=== PATIENT | male | born 1955 | race Caucasian/White ===

== ENCOUNTER 2019-08-25 00:56 | Observation (INO) | payer MEDICARE, SELFPAY ==
--- NOTE | ~2019-08-25 | XR_ITS ---
EXAMINATION: XR loopogram retrograde urogra DATE: 08/25/2019 14:29 INDICATION: Right hydronephrosis. Assess for reflux. TECHNIQUE: [employer] AP radiograph of the abdomen and pelvis was obtained. Multiple fluoroscopic images w ere obtained during retrograde injection of water-soluble contrast into the patient's left lower quad rant ileal conduit. A total of 144 fluoroscopic images were obtained. Fluoroscopy exposure time was 0 .4 minutes. COMPARISON: Outside institution CT performed at [facility] on 08/24/2019 FINDINGS: Residential Sub[employer]or images demonstrate multiple surgical clips and sutures in the pelvis along with a cou ple anastomotic suture lines consistent with prior cystectomy, pelvic lymph node dissection and ileal conduit formation. Drasco for a penile prosthesis also projects over the inferior left hemipelvis . Subsequent images demonstrate retrograde contrast opacification of the ileal conduit with reflux of contrast cephalad along both the nondilated left and right ureters into the bilateral renal collecti ng systems. There is mild to moderate bilateral hydronephrosis. There are kins along the proximal asp ect of both the left and right ureters which on the right appears partially obstructing with intermit tent neural jet of contrast extending cephalad from the site of narrowing. On the left the changes in dicated by a couple thin bands of decreased contrast attenuation. No intraluminal filling defects or urothelial irregularities along the opacified portions of the ureters. IMPRESSION: 1. Ileal conduit with reflux of contrast into both the left and right renal collecting systems which demonstrate mild to moderate bilateral hydronephrosis. 2. Kinks in the course of the proximal left and right ureters which on the right appears to result in low-grade obstruction to at least retrograde flow. Reviewed, dictated and finalized at location A. IMPRESSION: 1. Ileal conduit with reflux of contrast into both the left and right renal col lecting systems which demonstrate mild to moderate bilateral hydronephrosis. 2. Kinks in the course of the proximal left and right ureters which on the righ t appears to result in low-grade obstruction to at least retrograde flow.
--- NOTE | 2019-08-25 01:17 | ADMGEN ---
This patient, Josué Crocker, was admitted to Medical Room 252-01. Patient/family oriented to hospital policies and general routines including ID bracelet, bed and alarms, visiting hours, pain management, procedures, bathroom and other care routines, personal items, smoking policy, room service/diet, and visiting hours. Valuables list has been completed. Information on how to activate the Rapid Response Team has been discussed. Patient/Family are encouraged to report perceived risks to care and to ask questions if they do not understand what they are told or what they should do.
[2019-08-25 01:50] VITALS: BMI 33.2
[2019-08-25] MEDS: SODIUM CHLORIDE 0.9% IV 1,000 ML 100 ML IV CONT ×3 (02:23→23:50)
[2019-08-25] MEDS: TRAZODONE HCL 50 MG TABLET PO ×2 (02:24→21:10)
[2019-08-25 05:26] LABS: Add Urine Microscopic? YES; Appearance Urine Cloudy (Clear); Bacteria Urine Trace /hpf; Bilirubin Urine Negative (Negative); Blood Urine 1+ (Negative); Color Urine Yellow (Yellow); Glucose Urine UA Negative (Negative); Ketones Urine Negative (Negative); Leukocyte Esterase Ur 2+ LEU/UL (Negative); Mucus Urine Rare /lpf; Nitrate Urine Negative (Negative); Protein Urine 1+ mg/dL (Negative); Specific Grav Ur 1.013 (1.001-1.035); Squamous Epithelial Cell Urine Rare /hpf (Few); Urobilinogen Urine Negative mg/dL (<2.0); WBC Urine >75 /hpf
[2019-08-25 06:00] VITALS: BP 123/73; PULSE 96; RESP 20; TEMP 37; O2SAT 98
[2019-08-25 06:31] LABS: Basophils Absolute Auto 0.1 K/mm3 (0.0-0.1); Basophils Percent Auto 0.7 % (0.2-1.2); Eosinophils Absolute Auto 0.2 K/mm3 (0-0.3); Eosinophils Percent Auto 2.2 % (0-4.4); Hematocrit 38.5 % (42.0-52.0); Hemoglobin 12.6 g/dL (14.0-18.0); Immature Granulocyte Absolute 0.05 K/mm3 (0.00-0.031); Immature Granulocyte Percent A 0.6 % (0-0.5); Lymphocytes Absolute Auto 1.31 K/mm3 (0.9-3.2); Lymphocytes Percent Auto 14.7 % (18.3-44.2); Mean Corpuscular HGB Conc 32.7 g/dl (32-36); Mean Corpuscular Hemoglobin 29.4 pg (26-34); Mean Platelet Volume 10.3 fl (7.4-10.4); Monocytes Absolute Auto 1.2 K/mm3 (0.1-0.6); Monocytes Percent Auto 13.9 % (2.6-8.5); Neutrophils Absolute Auto 6.1 K/mm3 (1.3-6.7); Neutrophils Percent Auto 67.9 % (45.5-73.1); Platelet Count Result 170 k/mm3 (150-375); Red Blood Count 4.28 M/mm3 (4.6-6.20); Red Cell Distribution Width 13.9 % (11.5-14.5); White Blood Count 8.9 K/mm3 (4.5-10.0)
--- NOTE | 2019-08-25 09:06 | PM.IMHP ---
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 He reports that he developed pyuria 3-4 weeks ago. He was treated with three 10 day courses of augmentin. His sx resolved while on augmentin but returned immediately after stopping the antibiotics. He reports that he had a negative urine culture ordered by his PCP following his second course of augmentin but his sx recurred so he started the third course of augmentin. He reports that he ran out of augmentin Saturday and took two doses of ciprofloxacin. His sx persisted despite ciprofloxacin so he proceeded to the ED. Initial vitals on presentation to [place] were BP 143/83, HR 101, RR 18, temp 97.6 F, SpO2 95%. Initial workup in the ED revealed WBC 12.2, Hb 13.9, Hct 40.7, Cr 1.63, BUN 20, lactic acid 0.6, and CT abd/pelvis wo contrast which revealed new and diffuse lymph node abnormalities concerning for lymphoma, right hydronephrosis and hydroureter, mild left hydronephrosis and hydroureter similar to prior study with nonobstructing left kidney stone which is unchanged, poorly visualized 3cm focal abnormality in the mid left kidney, diverticulosis without evidence of inflammation or obstruction, and nonspecific peripancreatic findings. He was transferred to our facility as he is established with Dr. Wong. He is seen on the medical floor. At this time, he reports mild sweats. He denies flank pain at this time, nausea, and vomiting. He denies abdominal pain. He reports constipation recently. He had a BM last night in the ED. He denies SOB, chest pain, and cough. Review of Systems Review of Systems: Narrative: Constitutional: Denies significant fatigue. Reports fever as above and intermittent chills. Reports decreased appetite since Saturday. Eyes: Denies vision change. No additional eye complaints. ENT: Denies change in hearing, nasal congestion, dysphagia, odynophagia, and sore throat. Reports seasonal allergies. Cardiovascular: Denies palpitations and chest pain. Denies PND and orthopnea. Denies dyspnea on exertion. Respiratory: Denies cough and shortness of breath. Gastrointestinal: Denies abdominal pain, nausea, and vomiting. Genitourinary: Reports mild right flank pain over the weekend which has resolved today. Reports mild pyuria. Pt has a urostomy. Musculoskeletal: Denies joint pain and swelling. Denies muscle cramps and weakness. Skin: Denies lesions and wounds. Neurologic: Denies focal weakness, paresthesias, confusion, and speech change. Psychiatric: Denies mood change. Denies anxiety and depression. Hematologic: Denies easy bruising and bleeding. All systems reviewed & are unremarkable except as noted in HPI and below PMFSH Past Medical History Medical History Bladder cancer s/p radical cystectomy and ileal loop urinary diversion in 1998 Hyperlipidemia Hypertension Parastomal hernia Recurrent urinary tract infection Surgical History Surgical History H/O prostatectomy History of penile implant History of total cystectomy History of urostomy Hx of hernia repair Family History Family History Father Bladder cancer Sibling Bladder cancer Mother Cancer Father Lung cancer Sibling Bladder cancer Social History Social History Smoking packs per day: 1 Smoking cigarettes per day: 20.0 Years smoked:
[2019-08-25] MEDS: allopurinoL 100 MG TABLET PO (09:17)
[2019-08-25] MEDS: ATORVASTATIN 40 MG TABLET PO (09:18)
[2019-08-25] MEDS: AMLODIPINE BESYLATE 5 MG TABLET PO (09:18)
--- NOTE | 2019-08-25 10:48 | WPDURCON ---
Assessment and Plan Assessment and plan (1) Hydronephrosis of right kidney: Code(s): N13.30 - Unspecified hydronephrosis Status: Acute Assessment and Plan: Will obtain loopogram to look for reflux. We will see what creatinine level shows in the morning. If his creatinine level is increasing and there is no reflux then he may require a renal scan with Lasix washout. We will also discuss with Dr. pandya is well known to him (2) Lymphadenopathy: Code(s): R59.1 - Generalized enlarged lymph nodes Status: Acute Assessment and Plan: Dr. Torres has been consult regarding the adenopathy. (3) Left kidney mass: Code(s): N28.89 - Other specified disorders of kidney and ureter Status: Acute Assessment and Plan: Will evaluate further with a CT with and without contrast once we see what his creatinine level does. Urology Consult Note HPI Date Seen: 08/25/19 Time Seen: 10:48 Requesting Physician: Renetta Longo PA-C Primary Care Provider: UNKNOWN,DOCTOR Consult Narrative Reason for consult: Right hydronephrosis with possible UTI Narrative: Josué Crocker is a 64 year old male who is well known to Dr. Wong. He has a history of a cystectomy many years ago in 1998. He then had a hernia repair with the conduit moved to the left side subsequent to that. He has had issues with recurrent urinary tract infections and has been on suppressive Keflex. He he noticed that despite a recent course of antibiotics as well as the suppressive antibiotics that he was just not getting better. He was having some mild right flank pain. He presented to the emergency room at [facility]. Evaluation there [place] [id number] with a creatinine level of 1.6. He underwent a noncontrast CT scan which revealed 7 new right hydroureter which was difficult to differentiate from reflux versus obstruction. He also was noted to have some new diffuse lymph node abnormalities which they felt was concerning for lymphoma which will need to be evaluated. There was also a question of a lesion in his left kidney measuring 3 cm but it was poorly visualized difficult to tell whether to dromedary hump versus cystic. At the time my evaluation the patient is extremely comfortable denies any fevers flank pain. Review of Systems Review of Systems: All systems reviewed & are unremarkable except as noted in HPI and below Constitutional: Constitutional: Reports no additional constitutional complaints PMFSH Past Medical History Medical History Bladder cancer s/p radical cystectomy and ileal loop urinary diversion in 1998 Hyperlipidemia Hypertension Parastomal hernia Recurrent urinary tract infection Surgical History Surgical History H/O prostatectomy History of penile implant History of total cystectomy History of urostomy Hx of hernia repair Family History Family History Father Bladder cancer Sibling Bladder cancer Mother Cancer Father Lung cancer Sibling Bladder cancer Social History Social History Smoking packs per day: 1 Smoking cigarettes per day: 20.0 Years smoked: 40 Smoking pack-years: 40.00 Smoking status: Current every day smoker Tobacco type: cigarettes Alcohol intake: current Alcohol use details: 1 beer per month Substance use: never Gender identity (if verbalized by the patient): Male Spiritual care concerns: No Agree to blood products: Yes Meds Home Medications and Allergies Home Medications Medication Instructions Recorded Confirmed Type allopurinol 100 mg PO DAILY 08/25/19 08/25/19 History amlodipine 5 mg PO DAILY 08/25/19 08/25/19 History atorvastatin 40 mg PO
--- NOTE | 2019-08-25 13:40 | PC.NURSE ---
Patient to XRay per wheelchair. IV saline locked.
[2019-08-25 13:42] VITALS: BP 136/88; PULSE 95; RESP 18; TEMP 37; O2SAT 96
--- NOTE | 2019-08-25 14:25 | PC.NURSE ---
Patient return from XRay.
--- NOTE | 2019-08-25 20:06 | CONS_ITS ---
DATE OF CONSULTATION: 08/25/2019 REASON FOR CONSULTATION: Lymphadenopathy. HISTORY OF PRESENTING ILLNESS: This is a pleasant 64-year-old male with history of transitional cell cancer of the bladder, status post radical cystectomy with ileal loop urinary diversion done in 1998. The patient otherwise in good health except history of hypertension and hyperlipidemia. He has history of recurrent urinary tract infection. He came into the [facility] with complaint of low-grade fever along with chills and flank pain going on for 2-3 days duration. He was treated with couple of courses of antibiotic treatment initially with ciprofloxacin and then Augmentin. At [facility], the patient had CT scan of the abdomen and pelvis done that showed new and diffuse lymphadenopathy concerning for lymphoma and right-sided hydronephrosis. Clinically, he denies any weight loss. He denies any night sweats. He had some fevers and chills, which has subsided. He denies any new lumps, bumps and lymphadenopathy. REVIEW OF SYSTEMS: 12-point review of system was reviewed and as per HPI, otherwise negative. PAST MEDICAL HISTORY: History of transitional cell carcinoma of the bladder status post radical cystectomy done in 1998, hypertension, hyperlipidemia, recurrent UTI. PAST SURGICAL HISTORY: Prostatectomy, history of penile implant, total cystectomy, urostomy, and hernia repair. FAMILY HISTORY: Father had bladder cancer. Brother had bladder cancer. Mother had unknown cancer. SOCIAL HISTORY: The patient smokes 1 pack per day for and has been smoking more than 40 years duration. He drinks occasionally. The patient is . HOME MEDICATIONS: Reviewed. ALLERGIES: REVIEWED. PHYSICAL EXAMINATION: GENERAL: This patient is a well-developed, well-nourished, male, alert and oriented. VITAL SIGNS: Per nursing note. HEENT: Normocephalic, atraumatic. Clear oropharynx. LUNGS: Clear to auscultation bilaterally. CARDIOVASCULAR: Regular rate and rhythm. No murmurs. ABDOMEN: Soft, nontender, nondistended. Bowel sounds are positive in all 4 quadrants. No hepatosplenomegaly. EXTREMITIES: No edema. NEUROLOGIC: Exam is grossly intact. LABORATORY DATA: WBC 8.9, hemoglobin 12.6, MCV 90, platelets 170,000, neutrophils 67%, lymphocytes 14%. ASSESSMENT AND PLAN: Diffuse abdominal lymphadenopathy. The patient is a 64-year-old obese male with history of transitional cell carcinoma of the bladder, status post radical cystectomy and ileal loop urinary diversion done in 1998. He has been dealing with recurrent UTI. Now, he came into the medical attention when he went to [facility] with complaint of flank pain, low-grade fever and chills going on for last 2-3 days duration. The patient was treated with couple of rounds of antibiotic therapy for UTI initially with ciprofloxacin and more recently with Augmentin. Now, he is on IV antibiotic and already feeling better. I do not have the CT scan for my review. I have provided this patient my office information for followup visit. Clinically, he denies any weight loss and has no evidence of lymphadenopathy and hepatosplenomegaly on my examination. After review of the CT scan from the outside hospital, we will make determination for lymph node biopsy if needed. The patient will follow up with my office to discuss this further. SULMA CLAYTON M.D. BULL [employer]IDDLE PLAYER BULL FIDDLE PLAYER D Edgardo MT: [place]
[2019-08-25 22:00] VITALS: BP 132/82; PULSE 80; RESP 20; TEMP 36.6; O2SAT 98
[2019-08-26 05:53] VITALS: BP 130/81; PULSE 82; RESP 20; TEMP 36.4; O2SAT 95
[2019-08-26 06:09] LABS: Basophils Percent Auto 0.5 % (0.2-1.2); Eosinophils Absolute Auto 0.2 K/mm3 (0-0.3); Eosinophils Percent Auto 2.8 % (0-4.4); Hematocrit 36.2 % (42.0-52.0); Immature Granulocyte Absolute 0.03 K/mm3 (0.00-0.031); Immature Granulocyte Percent A 0.4 % (0-0.5); Lymphocytes Absolute Auto 1.32 K/mm3 (0.9-3.2); Lymphocytes Percent Auto 16.7 % (18.3-44.2); Mean Corpuscular HGB Conc 33.1 g/dl (32-36); Mean Corpuscular Hemoglobin 29.6 pg (26-34); Mean Corpuscular Volume 89.4 fl (80-100); Mean Platelet Volume 9.5 fl (7.4-10.4); Monocytes Absolute Auto 1.2 K/mm3 (0.1-0.6); Monocytes Percent Auto 14.9 % (2.6-8.5); Neutrophils Absolute Auto 5.1 K/mm3 (1.3-6.7); Neutrophils Percent Auto 64.7 % (45.5-73.1); Platelet Count Result 179 k/mm3 (150-375); Red Blood Count 4.05 M/mm3 (4.6-6.20); White Blood Count 7.9 K/mm3 (4.5-10.0)
[2019-08-26 06:25] LABS: Blood Urea Nitrogen 15 mg/dL (9-20); Calcium 8.6 mg/dL (8.4-10.2); Carbon Dioxide 24 mmol/L (22-30); Chloride 108 mmol/L (98-107); Estimated CRCL calculation 54 ml/min; Estimated Glomerular Filt Rate 51; Glucose 103 mg/dL (75-110); Potassium 3.9 mmol/L (3.4-5.0); Sodium 137 mmol/L (137-145)
[2019-08-26] MEDS: ATORVASTATIN 40 MG TABLET PO (08:03)
[2019-08-26] MEDS: allopurinoL 100 MG TABLET PO (08:03)
[2019-08-26] MEDS: AMLODIPINE BESYLATE 5 MG TABLET PO (08:03)
--- NOTE | 2019-08-26 08:25 | WPDPN ---
Progress Note: A&P Assessment and Plan (1) Bladder cancer: Code(s): C67.9 - Malignant neoplasm of bladder, unspecified Status: Acute Assessment and Plan: - pt feeling well. Loopogram: bilateral ureteral reflux - elimantes significant upper tract obstruction. - Plan discahrge per primary team. - recommend suppressive Keflex 500mg daily x3 months. - F/U with Dr. Wong in 6-weeks. Review of Systems Constitutional: Constitutional: Reports no additional constitutional complaints Exam Const: General: no acute distress Resp: Effort & Inspection: normal respiratory effort : Other: ostomy pink, urine clear in bag Objective Data Vital Signs Vital Signs: Vital Signs - 24 hr 08/25/19 13:42 08/25/19 22:00 08/26/19 05:53 Temperature 37.0 C 36.6 C 36.4 C Pulse Rate 95 80 82 Respiratory Rate 18 20 20 Blood Pressure 136/88 132/82 130/81 Pulse Oximetry 96 98 95 Intake/Output Intake/Output: Intake & Output 08/23/19 08/24/19 08/25/19 08/26/19 23:59 23:59 23:59 23:59 Intake Total 2540 390 Output Total 1050 Balance 1490 390 Meds/Results Medications: Active Medications Generic Name Dose Route Start Last Admin Trade Name Freq PRN Reason Stop Dose Admin Acetaminophen 650 mg 08/25/19 01:47 Tylenol Tablet PO Q4H PRN Mild Pain (1-3) or Fever Allopurinol 100 mg 08/25/19 09:00 08/26/19 08:03 Zyloprim PO 100 mg DAILY ELVIA Administration Amlodipine Besylate 5 mg 08/25/19 09:00 08/26/19 08:03 Norvasc PO 5 mg DAILY ELVIA Administration Atorvastatin Calcium 40 mg 08/25/19 09:00 08/26/19 08:03 Lipitor PO 40 mg DAILY ELVIA Administration Sodium Chloride 1,000 mls @ 100 mls/hr 08/25/19 01:50 08/25/19 23:50 Normal Saline Iv IV CONT 100 mls/hr .Q10H ELVIA Administration Ceftriaxone Sodium/Dextrose 1 gm in 50 mls @ 100 mls/hr 08/25/19 18:00 08/25/19 17:36 Rocephin 1 Gm/D5w 50 Ml IVPB Infused Q24H ELVIA Infusion Ondansetron HCl 4 mg 08/25/19 01:47 Zofran Inj IV PUSH Q6H PRN Nausea And Vomiting Trazodone HCl 50 mg 08/25/19 01:55 08/25/19 21:10 Desyrel PO 50 mg HS ELVIA Administration Radiology Results: ITS Impressions Ileo Loopogram 08/25/19 14:46 IMPRESSION: 1. Ileal conduit with reflux of contrast into both the left and right renal collecting systems which demonstrate mild to moderate bilateral hydronephrosis. 2. Kinks in the course of the proximal left and right ureters which on the right appears to result in low-grade obstruction to at least retrograde flow. Labs Labs: Laboratory Results - last 24 hr 08/26/19 08/26/19 05:37 05:37 WBC 7.9 RBC 4.05 L Hgb 12.0 L Hct 36.2 L MCV 89.4 MCH 29.6 MCHC 33.1 RDW 14.0 Plt Count 179 MPV 9.5 Immature Gran % (Auto) 0.4 Neut % (Auto) 64.7 Lymph % (Auto) 16.7 L [place] % (Auto) 14.9 H Eos % (Auto) 2.8 Baso % (Auto) 0.5 Lymph # (Auto) 1.32 [place] # (Auto) 1.2 H Eos # (Auto) 0.2 Baso # (Auto) 0.0 Abs Immat Gran (auto) 0.03 Absolute Neuts (auto) 5.1 Absolute Nucleated RBC 0.0 Nucleated RBC % 0.0 Sodium 137 Potassium 3.9 Chloride 108 H Carbon Dioxide 24 BUN 15 Creatinine 1.40 H Estim Creat Clear Calc 54 Estimated GFR 51 L Glucose 103 Calcium 8.6 Quality VTE Prophylaxis VTE prophylaxis: mechanical ordered
--- NOTE | 2019-08-26 09:24 | PM.DS ---
DS: Diagnosis Admitting Diagnosis Admitting Diagnosis: Unspecified hydronephrosis Discharge Diagnosis (1) Sepsis: Qualifiers: Sepsis acute organ dysfunction status: without acute organ dysfunction Sepsis type: sepsis due to unspecified organism Qualified Code(s): A41.9 - Sepsis, unspecified organism Code(s): A41.9 - Sepsis, unspecified organism Status: Acute (2) Pyelonephritis: Code(s): N12 - Tubulo-interstitial nephritis, not specified as acute or chronic Status: Acute (3) Acute kidney injury: Code(s): N17.9 - Acute kidney failure, unspecified Status: Acute (4) Left kidney mass: Code(s): N28.89 - Other specified disorders of kidney and ureter Status: Acute (5) Bladder cancer: Code(s): C67.9 - Malignant neoplasm of bladder, unspecified Status: Chronic (6) Hydronephrosis of right kidney: Code(s): N13.30 - Unspecified hydronephrosis Status: Acute (7) Lymphadenopathy: Code(s): R59.1 - Generalized enlarged lymph nodes Status: Acute (8) Tobacco dependence: Code(s): F17.200 - Nicotine dependence, unspecified, uncomplicated Status: Chronic Assessment and Plan: (9) Hyperlipidemia: Qualifiers: Hyperlipidemia type: unspecified Qualified Code(s): E78.5 - Hyperlipidemia, unspecified Code(s): E78.5 - Hyperlipidemia, unspecified Status: Chronic (10) Hypertension: Qualifiers: Hypertension type: essential hypertension Qualified Code(s): I10 - Essential (primary) hypertension Code(s): I10 - Essential (primary) hypertension Status: Chronic (11) DVT prophylaxis: Code(s): Z29.9 - Encounter for prophylactic measures, unspecified Status: Acute DS: Summary Hospital Course Reason for hospitalization: Mr. Crocker is a 64 y.o. 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 He reported taking multiple courses of augmentin with intermittent sx relief but his sx would recur as soon as he stopped the antibiotics. Initial workup at OSH revealed WBC 12,200, Hb 13.9, Hct 40.7, Cr 1.63, BUN 20, lactic 0.6, and CT abd/pelvis which revealed right hydronephrosis and hydroureter, mild left hydronephrosis and hydroureter with non-obstruction left kidney stone visualized on prior study, poorly defined 3cm left kidney abnormality, and new diffuse lymph node abnormalities concerning for lymphoma. The pt was transferred to our facility for urology consultation due to hydroureter and hydronephrosis as Dr. Wong is his urologist. Urology was consulted and he was admitted to the hospitalist service for further evaluation and treatment. Urine and blood cultures were obtained as he met SIRS criteria at presentation to OSH. He was treated with IV ceftriaxone for suspected pyelonephritis and IV fluids for FAYE. Oncology was consulted for his lymphadenopathy identified on CT abd/pelvis and the patient will follow-up with Dr. Torres for further evaluation of his diffuse abdominal lymphadenopathy. He underwent loopogram which revealed bilateral ureteral reflux which eliminated significant upper tract obstruction. Urology recommended suppressive keflex 500mg QD for three months and follow-up in 6 weeks. Urine culture was negative for growth. Blood cultures reveal NGTD. He was discharged on PO keflex. The patient's symptoms including right flank pain and pyuria resolved. WBC normalized and he remained afebrile. Smoking cessation was discussed with the pt at length. He was advised to continue follow-up with his specialists and PCP outpatient for further evaluation of his left kidney abnormality and lymphadenopathy. He was discharged home in stab
== END 2019-08-26 10:19 | disposition home or self-care (01) ==
PROVIDERS: Admitting Provider Internal Medicine; Visit Provider Physician Assistant
DX: A41.9 Sepsis, unspecified organism (principal); N12 Tubulo-interstitial nephritis, not specified as acute or chronic; N17.9 Acute kidney failure, unspecified; N28.89 Other specified disorders of kidney and ureter; C67.9 Malignant neoplasm of bladder, unspecified; N13.70 Vesicoureteral-reflux, unspecified; N13.30 Unspecified hydronephrosis; R59.1 Generalized enlarged lymph nodes; F17.210 Nicotine dependence, cigarettes, uncomplicated; E78.5 Hyperlipidemia, unspecified; I10 Essential (primary) hypertension
CPT/HCPCS: 36415; 74420; 80048; 81001; 85025; 87040; 87086; 96361; 96365; A9270; G0378; J0696; J7030; Q9966

== ENCOUNTER 2019-09-10 12:55 | Outpatient (CLI) | payer MEDICARE, SELFPAY ==
[2019-09-10 13:41] LABS: Blood Urea Nitrogen 22 mg/dL (9-20); Calcium 9.5 mg/dL (8.4-10.2); Carbon Dioxide 26 mmol/L (22-30); Chloride 106 mmol/L (98-107); Estimated Glomerular Filt Rate 41; Glucose 141 mg/dL (75-110); Potassium 3.9 mmol/L (3.4-5.0); Sodium 139 mmol/L (137-145)
== END 2019-09-10 12:56 | disposition home or self-care (01) ==
PROVIDERS: Visit Provider Physician Assistant
DX: N17.9 Acute kidney failure, unspecified (principal)
CPT/HCPCS: 36415; 80048

== ENCOUNTER 2019-09-17 07:21 | Outpatient (CLI) | payer MEDICARE, SELFPAY ==
--- NOTE | ~2019-09-17 | PE_ITS ---
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 TECHNIQUE: Blood glucose level was 100 mg/dL. 11.018 mCi of 18-fluorodeoxyglucose (18-FDG) was admini stered i.v. Low dose computed tomography (CT) images were acquired from the base of the brain to the proximal thighs for attenuation correction and anatomic localization. Automated exposure control was employed. Dose-length product (DLP) was 997 mGy-cm. Positron emission tomography (PET) images were ac quired in the same distribution. COMPARISON: CT abdomen and pelvis 08/24/2019 FINDINGS: Head/neck: There is left supraclavicular lymphadenopathy with increased activity. Chest: Calcified left hilar lymph nodes are consistent with old granulomatous disease. No pleural eff usion. The heart size is normal. No pericardial effusion. Abdomen/pelvis/proximal thighs: The liver, gallbladder, pancreas, and adrenal glands are normal. Ther e is cortical thinning of the kidneys. There is moderate right hydronephrosis and hydroureter due to retroperitoneal lymphadenopathy. There are 2 stones in left kidney with the larger measuring 4 mm. Th ere is an ileal conduit on the left. There are no dilated loops of bowel. There is diverticulosis of the colon without evidence of diverticulitis. There is a penile prosthesis. There are changes of vent ral hernia repair. There is retrocrural, peripancreatic, periportal, mesenteric, aortocaval, left par a-aortic, bilateral common iliac, and bilateral external iliac lymphadenopathy with increased activit y. Aortocaval and left para-aortic lymphadenopathy is confluent and encases the aorta in a mass measu ring 11.9 x 6.2 cm with maximum SUV of 16.0. There is no free intraperitoneal fluid. There is no osse ous metastatic disease. IMPRESSION: 1. Abdominal, pelvic, and left supraclavicular lymphadenopathy with increased activity, consistent wi th lymphoma. 2. Moderate right hydronephrosis and hydroureter due to retroperitoneal lymphadenopathy. Reviewed, dictated and finalized at location A. IMPRESSION: 1. Abdominal, pelvic, and left supraclavicular lymphadenopathy with increased a ctivity, consistent with lymphoma. 2. Moderate right hydronephrosis and hydroureter due to retroperitoneal lymphad enopathy.
[2019-09-17 07:49] LABS: Glucose Point of Care 100 (65-105)
== END 2019-09-17 07:22 | disposition home or self-care (01) ==
PROVIDERS: Visit Provider Internal Medicine Hematology & Oncology
DX: C81.73 Other Hodgkin lymphoma, intra-abdominal lymph nodes (principal); R59.0 Localized enlarged lymph nodes; N13.30 Unspecified hydronephrosis; N13.4 Hydroureter
CPT/HCPCS: 78815; A9552

== ENCOUNTER 2019-10-14 13:05 | Outpatient (CLI) | payer MEDICARE, SELFPAY ==
--- NOTE | ~2019-10-14 | US_ITS ---
EXAMINATION: US biopsy lymph node DATE: 10/14/2019 14:07 INDICATION: Hodgkin's lymphoma of intra-abdominal lymph nodes with enlarged FDG avid left supraclavic ular lymph nodes. TECHNIQUE: The procedure including the risks and benefits was discussed with the patient. Risks discu ssed included bleeding and infection. The patient understood the risks and agreed to proceed. The sk in overlying the left supraclavicular lymph nodes of concern was prepped and draped in usual sterile fashion. Anesthetic was administered with 1% lidocaine subcutaneously. An 18 gauge core biopsy need le was advanced under continuous ultrasound observation to the lesion of interest. 8 core biopsy spe cimens were obtained, 6 were placed in RPMI media and 2 in formalin. The needle was removed and the entry site was cleaned and dressed. Post procedure ultrasound demonstrated no hemorrhage. FINDINGS: Ultrasound images demonstrate a hypoechoic 3.3 x 3.3 x 1.8 cm left supraclavicular lymph no de. There are several additional smaller but still abnormally enlarged left supraclavicular lymph nod es. Final images demonstrate biopsy needle advanced at the largest left supraclavicular lymph node. IMPRESSION: 1. Successful Ultrasound-guided biopsy of a 3.3 x 3.3 x 1.8 cm left supraclavicular lymph node. Reviewed, dictated and finalized at location A. IMPRESSION: 1. Successful Ultrasound-guided biopsy of a 3.3 x 3.3 x 1.8 cm left supraclavic ular lymph node.
== END 2019-10-14 13:06 | disposition home or self-care (01) ==
PROVIDERS: Visit Provider Internal Medicine Hematology & Oncology
DX: C85.93 Non-Hodgkin lymphoma, unspecified, intra-abdominal lymph nodes (principal)
CPT/HCPCS: 38505; 76942; 88184; 88185; 88305; 88342

== ENCOUNTER 2019-10-30 00:27 | Outpatient (CLI) | payer MEDICARE, SELFPAY ==
[2019-10-30 20:58] LABS: SARS-CoV-2 RNA PCR Negative
== END 2019-10-30 00:28 | disposition home or self-care (01) ==
LOC: ANHCOVIDDT 00:27
PROVIDERS: Visit Provider Surgery
DX: Z01.812 Encounter for preprocedural laboratory examination (principal); Z11.59 Encounter for screening for other viral diseases
CPT/HCPCS: 36415; 85025; 85610; 85730; 87635; 93005; C9803; U0003

== ENCOUNTER 2019-10-30 08:55 | Outpatient (CLI) | payer MEDICARE, SELFPAY ==
--- NOTE | 2019-10-30 09:00 | ECG_ITS ---
Measurements Intervals [place] Rate: 68 P: 44 DE: 179 QRS: -36 QRSD: 104 T: 32 QT: 385 QTc: 410 Interpretive Statements SINUS RHYTHM LEFT AXIS DEVIATION POOR R WAVE PROGRESSION, ANTERIOR LEADS BASELINE ARTIFACT- I, II, AVR BORDERLINE ECG Electronically Signed On 10-30-2019 9:30:24 CDT by Darryn Canseco D.O.
[2019-10-30 09:18] LABS: Basophils Absolute Auto 0.1 K/mm3 (0.0-0.1); Basophils Percent Auto 0.8 % (0.2-1.2); Eosinophils Absolute Auto 0.2 K/mm3 (0-0.3); Eosinophils Percent Auto 2.1 % (0-4.4); Hematocrit 39.6 % (42.0-52.0); Hemoglobin 13.2 g/dL (14.0-18.0); Immature Granulocyte Absolute 0.05 K/mm3 (0.00-0.031); Immature Granulocyte Percent A 0.6 % (0-0.5); Lymphocytes Absolute Auto 1.78 K/mm3 (0.9-3.2); Lymphocytes Percent Auto 22.5 % (18.3-44.2); Mean Corpuscular HGB Conc 33.3 g/dl (32-36); Mean Corpuscular Hemoglobin 29.8 pg (26-34); Mean Corpuscular Volume 89.4 fl (80-100); Mean Platelet Volume 9.8 fl (7.4-10.4); Monocytes Absolute Auto 0.9 K/mm3 (0.1-0.6); Monocytes Percent Auto 10.9 % (2.6-8.5); Neutrophils Percent Auto 63.1 % (45.5-73.1); Platelet Count Result 157 k/mm3 (150-375); Red Blood Count 4.43 M/mm3 (4.6-6.20); Red Cell Distribution Width 14.7 % (11.5-14.5); White Blood Count 7.9 K/mm3 (4.5-10.0)
[2019-10-30 09:42] LABS: INR 1.1; Prothrombin Time 13.4 Seconds (11.1-14.7)
[2019-10-30 09:43] LABS: Partial Thromboplastin Time 26.8 SECONDS (22.3-36.8)
== END 2019-10-30 08:56 | disposition home or self-care (01) ==
LOC: ANHSURGERY 09:00
PROVIDERS: PCP Pediatrics; Visit Provider Surgery
DX: C82.90 Follicular lymphoma, unspecified, unspecified site (principal); I10 Essential (primary) hypertension; R94.31 Abnormal electrocardiogram [ECG] [EKG]
CPT/HCPCS: 36415; 85025; 85610; 85730; 93005

== ENCOUNTER 2019-11-02 01:40 | Day surgery (SDC) | payer MEDICARE, SELFPAY ==
[2019-10-27 09:22] VITALS: BMI 34.2
--- NOTE | 2019-11-01 16:14 | WPDANESEPP ---
Anes - Eval Pre Procedure Procedure: Operation Date: 11/02/19 07:30 Proposed Procedures p Insertion Andreas Cath - Ewelina Narvaez MD Date/Time: 11/01/19 16:14 Pre Op Diagnosis: Non Hodgkin Lymphoma Patient Data Age: 64 Gender: M Height: 1.73 m Weight: 102.06 kg Allergies Allergy/AdvReac Type Severity Reaction Status Date / Time levofloxacin Allergy Unknown TENDON PAIN Verified 10/27/19 09:04 Contrast Media Allergy Unknown Itching Uncoded 10/27/19 09:04 Home Medications Medication Instructions Recorded Confirmed Type allopurinol 100 mg PO DAILY 08/25/19 10/27/19 History atorvastatin 40 mg PO DAILY 08/25/19 10/27/19 History trazodone 50 mg PO HS 08/25/19 10/27/19 History cephalexin [Keflex] 500 mg PO DAILY 90 Days #90 cap 08/26/19 10/27/19 Rx amlodipine-valsartan 0.5 tablet PO DAILY 10/27/19 10/27/19 History Patient hx anesthesia problems: none Family hx anesthesia problems: none PMFSH Past Medical History Medical History Bladder cancer s/p radical cystectomy and ileal loop urinary diversion in 1998 Hyperlipidemia Hypertension Parastomal hernia Recurrent urinary tract infection Smoker 1 ppd x 40 years Surgical History Surgical History H/O prostatectomy History of penile implant History of total cystectomy History of urostomy Hx of hernia repair Family History Family History Father Bladder cancer Sibling Bladder cancer Mother Cancer Father Lung cancer Sibling Bladder cancer Social History Social History Smoking packs per day: 1 Smoking cigarettes per day: 20.0 Years smoked: 40 Smoking pack-years: 40.00 Smoking status: Current every day smoker Tobacco type: cigarettes Alcohol intake: current Substance use: never Gender identity (if verbalized by the patient): Male Spiritual care concerns: No Agree to blood products: Yes Exam Day of Procedure 11/01/19 16:14
--- NOTE | ~2019-11-02 | XR_ITS ---
XR fl guide central line place 11/02/2019 11:53 Indication: Portacatheter insertion Procedure: 3 fluoroscopic images of the chest. 9 seconds of fluoroscopy. Comparison: No prior studies for comparison. Findings: There is a left subclavian tushar catheter, tip in the SVC. Evaluation of lung parenchyma li mited due to technique. Impression: 1: Portacatheter tip in the SVC. Reviewed, dictated and finalized at location A. Impression: 1: Portacatheter tip in the SVC.
--- NOTE | ~2019-11-02 | XR_ITS ---
EXAMINATION: XR chest port-a-cath/central DATE: 11/02/2019 08:36 INDICATION: Port catheter insertion TECHNIQUE: frontal view of the chest was obtained. COMPARISON: Chest radiograph dated 08/10/2008 FINDINGS: Left subclavian central venous port catheter with distal tip near the superior cavoatrial junction. T here is undulation in the course of the catheter where it passes between the left clavicle in the ant erior left first rib but without evident kinking or flattening of the catheter. Bilateral scattered airspace opacities most prominent in the right upper and left lower lung zones. N o pulmonary edema, pleural effusion or pneumothorax. The cardiomediastinal silhouette is normal. Old healed right clavicle fracture deformity. IMPRESSION: 1. Left subclavian central venous port catheter with distal tip at the superior cavoatrial junction. 2. Scattered bilateral airspace opacities which could represent atelectasis and/or pneumonia. Reviewed, dictated and finalized at location A. IMPRESSION: 1. Left subclavian central venous port catheter with distal tip at the superior cavoatrial junction. 2. Scattered bilateral airspace opacities which could represent atelectasis and /or pneumonia.
[2019-11-02 06:10] VITALS: BP 120/78; PULSE 68; RESP 18; TEMP 36.2; O2SAT 98
[2019-11-02] MEDS: LACTATED RINGERS 1,000 ML 30 ML IV CONT (06:45)
--- NOTE | 2019-11-02 07:03 | WPDANESEPPF ---
Anes - Initial Pre Proc Eval Procedure: Operation Date: 11/02/19 07:30 Proposed Procedures p Insertion Andreas Cath - Ewelina Narvaez MD Date/Time: 11/02/19 07:03 Surgeon: Ewelina Narvaez MD Pre Op Diagnosis: Non Hodgkin Lymphoma Patient Data Age: 64 Gender: M Height: 5 ft 8 in Weight: 102.06 kg Allergies Allergy/AdvReac Type Severity Reaction Status Date / Time levofloxacin Allergy Unknown TENDON PAIN Verified 11/02/19 07:03 Contrast Media Allergy Unknown Itching Uncoded 11/02/19 07:03 Home Medications Medication Instructions Recorded Confirmed Type allopurinol 100 mg PO DAILY 08/25/19 11/02/19 History atorvastatin 40 mg PO DAILY 08/25/19 11/02/19 History trazodone 50 mg PO HS 08/25/19 11/02/19 History cephalexin [Keflex] 500 mg PO DAILY 90 Days #90 cap 08/26/19 11/02/19 Rx amlodipine-valsartan 0.5 tablet PO DAILY 10/27/19 11/02/19 History Patient hx anesthesia problems: none Family hx anesthesia problems: none PMFSH Past Medical History Medical History Bladder cancer s/p radical cystectomy and ileal loop urinary diversion in 1998 Hyperlipidemia Hypertension Parastomal hernia Recurrent urinary tract infection Smoker 1 ppd x 40 years Surgical History Surgical History H/O prostatectomy History of penile implant History of total cystectomy History of urostomy Hx of hernia repair Family History Family History Father Bladder cancer Sibling Bladder cancer Mother Cancer Father Lung cancer Sibling Bladder cancer Social History Social History Smoking packs per day: 1 Smoking cigarettes per day: 20.0 Years smoked: 40 Smoking pack-years: 40.00 Smoking status: Current every day smoker Tobacco type: cigarettes Alcohol intake: current Substance use: never Gender identity (if verbalized by the patient): Male Spiritual care concerns: No Agree to blood products: Yes Anes - Eval Final PreProcedure Day of Procedure 11/02/19 07:03 Patient weight: obese Heart: regular rate and rhythm Lungs: decreased breath sounds Airway: Mallampati scale class II Neurological: alert and oriented Last oral intake: >/= 8 hours ASA classification: III Emergent: no Anesthetic plan: proceed Anesthesia type and monitoring: general GIVS and standard monitoring Informed Consent: The patient's anesthetic plan and its attendant risks and benefits were discussed with the patient/family/POA. Questions were solicited and answers provided to the satisfaction of the patient/family/POA.
[2019-11-02] MEDS: IBUPROFEN IV 800 MG/200 ML 800 MG/200 ML BAG 400 MG IVPB (07:10)
--- NOTE | 2019-11-02 07:17 | PM.IMHP ---
H&P: HPI History of Present Illness Chief complaint: Non Hodgkin Lymphoma Narrative: Josué Crocker is a 64 year old male presenting for placement of port. Pt recently dx'd c lymphoma and needs access for chemotx. Pt denies any previous central catheterizations. Pt is right handed. Review of Systems Constitutional: Constitutional: Reports difficulty sleeping, Reports fatigue, Reports lethargy, Reports night sweats and Reports weakness Eyes: Eyes: Reports no additional eye complaints ENT: Reports Normal hearing present Cardiovascular: Cardiovascular: Denies chest pain and Denies palpitations Respiratory: Respiratory: Denies dyspnea Gastrointestinal: Gastrointestinal: Denies abdominal pain, Denies bloating, Denies constipation, Denies diarrhea, Denies nausea and Denies vomiting Genitourinary: Genitourinary: Denies dysuria Musculoskeletal: Musculoskeletal: Reports no additional musculoskeletal complaints Integumentary/Breasts: Skin/Breast: Reports system reviewed and no additional complaints, except as docu Neurologic: Reports system reviewed and no additional complaints, except as documented Psychiatric: Psychiatric: Reports no additional psychiatric complaints PMFSH Past Medical History Medical History Bladder cancer s/p radical cystectomy and ileal loop urinary diversion in 1998 Hyperlipidemia Hypertension Parastomal hernia Recurrent urinary tract infection Smoker 1 ppd x 40 years Surgical History Surgical History H/O prostatectomy History of penile implant History of total cystectomy History of urostomy Hx of hernia repair Family History Family History Father Bladder cancer Sibling Bladder cancer Mother Cancer Father Lung cancer Sibling Bladder cancer Social History Social History Smoking packs per day: 1 Smoking cigarettes per day: 20.0 Years smoked: 40 Smoking pack-years: 40.00 Smoking status: Current every day smoker Tobacco type: cigarettes Alcohol intake: current Substance use: never Gender identity (if verbalized by the patient): Male Spiritual care concerns: No Agree to blood products: Yes Meds Home Medications and Allergies Home Medications Medication Instructions Recorded Confirmed Type allopurinol 100 mg PO DAILY 08/25/19 11/02/19 History atorvastatin 40 mg PO DAILY 08/25/19 11/02/19 History trazodone 50 mg PO HS 08/25/19 11/02/19 History cephalexin [Keflex] 500 mg PO DAILY 90 Days #90 cap 08/26/19 11/02/19 Rx amlodipine-valsartan 0.5 tablet PO DAILY 10/27/19 11/02/19 History Allergies Allergy/AdvReac Type Severity Reaction Status Date / Time gadobenic acid Allergy Unknown Itching Verified 11/02/19 07:11 [From contrast - MRI] iohexol Allergy Unknown Itching Verified 11/02/19 07:11 [From contrast - CT, X-RAY] levofloxacin Allergy Unknown TENDON PAIN Verified 11/02/19 07:03 Contrast Media Allergy Unknown Itching Uncoded 11/02/19 07:03 Exam Const: General: no acute distress Eyes: Pupils: Equal, round and reactive pupils present EOM: EOMs intact bilaterally Neck: Neck: supple and no JVD Resp: Auscultation: clear to auscultation bilaterally Cardio: Rate: regular rate Rhythm: regular rhythm GI: Inspection: non-distended GI Palp: Yes Soft to palpation, No Tenderness to palpation present (GI), No Guarding due to palpation present (GI) and No Hernia present Other: urostomy +fxn Skin: General skin exam: normal color Extrem: General: normal to inspection Assessment and Plan Assessment and plan (1) Follicular lymphoma: Code(s): C82.90 - Follicular lymphoma, unspecified, unspecified site Status: Acute Assessment and Plan: will place VAD for chemo access
[2019-11-02] MEDS: ceFAZolin 2 GM/D5W 50 ML 2 GM/50 ML BAG IVPB (07:28)
[2019-11-02] MEDS: BUPIVACAINE/EPINEPHRINE 0.5% 30 ML VIAL INFILTRATE (07:49)
[2019-11-02] MEDS: HEPARIN SODIUM 5,000 UNITS/ML VIAL 5000 UNITS IRRIGATION (07:50)
[2019-11-02] MEDS: HEPARIN SODIUM, PORCINE 10,000 UNITS/10 ML VIAL 3 UNITS IV PUSH (07:51)
--- NOTE | 2019-11-02 08:14 | PM.PROC ---
Procedure Note - Detailed Date of procedure: 11/02/19 Pre-op diagnosis: Non Hodgkin Lymphoma Post-op diagnosis: same Procedure performed: placement of left subclavian venous access device under fluroscopic guidance Description of procedure: Patient was brought into the operating room and placed in the supine position. After adequate induction of mac anesthesia, the patient was prepped and draped in normal sterile fashion. Time-out was then done to verify the patient's identity, as well as the procedure being performed. I began by making a small incision in the left chest, I then gained access into the left subclavian vein with an 18 gauge needle. I then placed the guidewire into the vein and confirmed placement via fluoroscopic guidance. I then locally anesthetized the area in the left chest. I then enlarged the incision around the guidewire including making a subcutaneous pocket inferiorly to allow placement of the port itself. I then placed a dilating sheath over the guidewire into the left subclavian vein via sterile Seldinger technique. This was once again done and confirmed via fluoroscopic guidance. I then removed the dilator and the guidewire, now just leaving the sheath in the vein. I then fed the previously flushed catheter into the left subclavian vein under fluoroscopic guidance. At approximately 23 cm, the catheter was noted to be near the atrial caval junction. I then peeled away the sheath, now just leaving the catheter in the vein. I then was able to easily draw and flush from the catheter. The catheter was cut to fit and attached to the port itself. The port was placed into the previously made subcutaneous pocket and sutured in with 0 Ethibond suture. Final fluoroscopic view showed the termination of the catheter at the atrial caval junction with a nice smooth curvature back to the port itself. I was able to gain access to the port with a Quinn needle and was able to easily draw and flush from the port. I then flushed 4 cc of a final heparin flush into the port. The incision was closed with 3 0 Vicryl suture in the subcutaneous tissue and the skin was closed with 4 O Monocryl subcuticular suture. Dermabond was then placed on wound. The patient tolerated the procedure well and will be sent to the recovery room in stable condition. Implants: L SCV VAD Anesthesia: MAC and local Surgeon: Ewelina Narvaez MD Estimated blood loss (mL): 5 Drains: No Packing: No Pathology: none sent Complications: No immediate complications Condition: stable Disposition: PACU Findings: placement of L SCV VAD via 1st stick
[2019-11-02 08:21] VITALS: BP 118/59; PULSE 72; RESP 16; O2SAT 95
[2019-11-02 08:50] VITALS: BP 109/71; PULSE 84; RESP 18; O2SAT 97
[2019-11-02 09:20] VITALS: BP 118/68; PULSE 74; RESP 18
== END 2019-11-02 09:50 | disposition home or self-care (01) ==
PROVIDERS: PCP Pediatrics; Visit Provider Surgery
PROC: (CPT 36561; principal; 2019-11-02 07:30)
DX: C85.90 Non-Hodgkin lymphoma, unspecified, unspecified site (principal); I10 Essential (primary) hypertension; E78.5 Hyperlipidemia, unspecified; Z85.51 Personal history of malignant neoplasm of bladder; F17.210 Nicotine dependence, cigarettes, uncomplicated
CPT/HCPCS: 36561; 77001; C1788; J0690; J1644; J1741; J2250; J2405; J2704; J3010; J7030; J7120

== ENCOUNTER 2020-02-03 12:14 | Outpatient (CLI) | payer MEDICARE, SELFPAY ==
--- NOTE | ~2020-02-03 | CT_ITS ---
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 Automated exposure control and iterative reconstruction technique were employed. Exam do se: 1358.28 mGy-cm total exam DLP. COMPARISON: 09/17/2019 PET scan 08/10/2008 CT abdomen pelvis FINDINGS: CHEST CT: Left Port-A-Cath catheter tip in superior vena cava. Normal heart size. No pericardial effusion. There are coronary artery calcifications. Thoracic aortic atherosclerotic calcifications; no evidence of thoracic aortic aneurysm. There are calcified left hilar nodes and calcified left upper lobe pulmonary granuloma, consistent wi th old granulomatous disease. No hilar or mediastinal mass lesion or lymphadenopathy. The lungs are clear of infiltrate or consolidation. No pleural effusion. No pneumothorax. ABDOMEN/PELVIS CT: There are calcified splenic granulomas consistent with old granulomatous disease. No hepatic, splenic, pancreatic or adrenal space-occupying mass lesion. Stable exophytic 1.3 cm upper pole left renal cyst, unchanged since 08/10/2008. There is scarring and v olume loss of both kidneys, right greater than left. Status post cystectomy, with ileal conduit. Status post prostatectomy and pelvic side wall lymph node dissection bilaterally. Penile prosthesis. There is atherosclerotic calcification of the abdominal aorta and iliac arteries without evidence of aneurysm. There is interval improvement of aortocaval and left periaortic confluent lymphadenopathy since 2019, currently measuring up to approximately 8 x 3.2 cm compared to prior reported measurement of 11 .9 x 6.2 cm. There are innumerable diverticula of the sigmoid and descending colon; no CT evidence of diverticulit is. No bowel obstruction, bowel wall thickening, pneumatosis or intraperitoneal free air. Diffuse idiopathic skeletal hyperostosis of the thoracic spine. No suspicious osteolytic or osteoblastic lesions are noted. IMPRESSION: Interval improvement of confluent aortocaval and periaortic lymphadenopathy since 020 Reviewed, dictated and finalized at Location [facility]. Reviewed, dictated and finalized at location B. IMPRESSION: Interval improvement of confluent aortocaval and periaortic lympha denopathy since 09/17/2019
== END 2020-02-03 12:15 | disposition home or self-care (01) ==
PROVIDERS: Visit Provider Nurse Practitioner Adult Health
DX: C82.23 Follicular lymphoma grade III, unspecified, intra-abdominal lymph nodes (principal)
CPT/HCPCS: 71250; 74176

== ENCOUNTER 2020-05-31 09:40 | Outpatient (CLI) | payer MEDICARE, SELFPAY ==
--- NOTE | ~2020-05-31 | CT_ITS ---
EXAMINATION: CT chest abdomen pelvis wo con EXAM DATE: 05/31/2020 10:32 INDICATION: Follicular lymphoma grade 3. TECHNIQUE: Spiral CT of the chest, abdomen and pelvis was performed without contrast. Axial, valentin l and sagittal images were reviewed. Coronal maximum intensity pixel images of chest reviewed. The dose-length product (DLP) for this examination was 1249.77 mGy-cm. The exposure was tailored accordi ng to patient size (auto mA exposure control), and iterative reconstruction (ASIR) was used as additi onal dose reduction technique. There is no prior study for comparison. FINDINGS: CHEST: The lungs are clear. There are no pleural or pericardial effusions. Tracheobronchial tree is patent. There is no mediastinal, hilar or axillary lymphadenopathy. There is no pneumothorax. Heart normal in size. There is mild coronary arterial calcification, arterial sclerosis. ABDOMEN PELVIS: There is a portacaval lymph node which is enlarged, but with decrease in size, measur ing about 2.7 x 1.5 cm today versus 3.4 x 1.9 cm on prior study. Also mild decrease in both size and density of the matted retroperitoneal lymphadenopathy extending down into the pelvis. This is likely response to treatment. The liver, spleen, adrenal glands and pancreas are unremarkable. Gallbladder is unremarkable. No biliary obstruction. There is moderate right renal atrophy, renal cortical thin frances and decrease in size. Lobular renal contours bilaterally. No hydronephrosis. Prostatectomy, cyst ectomy and ileal pouch There is mild to moderate scattered arteriosclerotic disease. The appendix is not positively visualized. There is no pericecal inflammatory change to suggest appe ndicitis. There is moderate to severe descending and sigmoid colonic colonic diverticulosis. There i s no adjacent inflammatory change to suggest diverticulitis. The stomach and small bowel are unremark able. There is expected amount of colonic stool. No free intraperitoneal gas. There are no osteo blastic or osteolytic lesions identified. IMPRESSION: 1. Decrease in size and density of retroperitoneal, pelvic lymphadenopathy. 2. Colonic diverticulosis. 3. Right renal atrophy. 4. Surgical changes. Reviewed, dictated and finalized at location A. TANCE ADDICTION COORDINATOR
== END 2020-05-31 09:41 | disposition home or self-care (01) ==
PROVIDERS: Visit Provider Internal Medicine Hematology & Oncology
DX: C85.93 Non-Hodgkin lymphoma, unspecified, intra-abdominal lymph nodes (principal); C82.23 Follicular lymphoma grade III, unspecified, intra-abdominal lymph nodes; K57.30 Diverticulosis of large intestine without perforation or abscess without bleeding; N26.1 Atrophy of kidney (terminal)
CPT/HCPCS: 36415; 71250; 74176; 80053; 81001; 83615; 85025; 87077; 87086; 87088; 87186

== ENCOUNTER 2020-09-05 10:15 | Outpatient (CLI) | payer MEDICARE, SELFPAY ==
--- NOTE | ~2020-09-05 | CT_ITS ---
EXAMINATION: CT abdomen pelvis wo con DATE: 09/05/2020 10:47 INDICATION: Non-Hodgkin's lymphoma TECHNIQUE: Computed tomography (CT) of the abdomen and pelvis was performed without intravenous contr ast. The dose-length product (DLP) was 1233.54 mGy-cm. Automated exposure control and iterative recon struction technique were employed. COMPARISON: 05/31/2020 FINDINGS: Minimal dependent atelectasis is present in the lung bases. The heart size is normal. The l iver, pancreas, gallbladder, and adrenal glands are normal. Punctate calcifications in an otherwise n ormal spleen likely represent healed granulomatous disease. There is atrophy of the kidneys. Retroper itoneal lymphadenopathy extending along the right common iliac chain persists without significant nayan nge. There is no free intraperitoneal gas or evidence of bowel obstruction. The bladder and prostate are surgically absent. An ileal conduit is present in the left lower quadrant. Colonic diverticulosis is present without evidence of diverticulitis. A reservoir for a penile pump is present in the left pelvis. There are bridging osteophytes at multiple levels in the lower thoracic spine, consistent wit h diffuse idiopathic skeletal hyperostosis (DISH). IMPRESSION: 1. Stable retroperitoneal and right pelvic lymphadenopathy, consistent with lymphoma. Reviewed, dictated and finalized at location A. IMPRESSION: 1. Stable retroperitoneal and right pelvic lymphadenopathy, consistent with lym phoma.
== END 2020-09-05 10:16 | disposition home or self-care (01) ==
PROVIDERS: PCP Pediatrics; Visit Provider Internal Medicine Hematology & Oncology
DX: C85.93 Non-Hodgkin lymphoma, unspecified, intra-abdominal lymph nodes (principal)
CPT/HCPCS: 74176

== ENCOUNTER 2020-09-13 09:23 | Outpatient (CLI) | payer MEDICARE, SELFPAY ==
[2020-09-13 09:47] LABS: Basophils Percent Auto 0.7 % (0.2-1.2); Eosinophils Absolute Auto 0.1 K/mm3 (0-0.3); Eosinophils Percent Auto 2.8 % (0-4.4); Hemoglobin 13.2 g/dL (14.0-18.0); Immature Granulocyte Absolute 0.02 K/mm3 (0.00-0.031); Immature Granulocyte Percent A 0.4 % (0-0.5); Lymphocytes Absolute Auto 1.07 K/mm3 (0.9-3.2); Lymphocytes Percent Auto 23.4 % (18.3-44.2); Mean Corpuscular HGB Conc 33.8 g/dl (32-36); Mean Corpuscular Hemoglobin 30.9 pg (26-34); Mean Corpuscular Volume 91.3 fl (80-100); Mean Platelet Volume 8.6 fl (7.4-10.4); Monocytes Absolute Auto 0.6 K/mm3 (0.1-0.6); Monocytes Percent Auto 13.6 % (2.6-8.5); Neutrophils Absolute Auto 2.7 K/mm3 (1.3-6.7); Neutrophils Percent Auto 59.1 % (45.5-73.1); Platelet Count Result 131 k/mm3 (150-375); Red Blood Count 4.27 M/mm3 (4.6-6.20); Red Cell Distribution Width 12.9 % (11.5-14.5); White Blood Count 4.6 K/mm3 (4.5-10.0)
[2020-09-13 12:48] LABS: Alanine Aminotransferase 16 U/L (4-50); Albumin Level 4.4 g/dL (3.5-5.1); Alkaline Phosphatase 105 U/L (38-126); Anion Gap 7 mmol/L (8-16); Aspartate Amino Transferase 32 U/L (17-59); Bilirubin,Total 0.4 mg/dL (0.2-1.3); Blood Urea Nitrogen 25 mg/dL (9-20); Calcium 9.8 mg/dL (8.4-10.2); Carbon Dioxide 26 mmol/L (22-30); Chloride 106 mmol/L (98-107); Estimated Glomerular Filt Rate 38; Glucose 117 mg/dL (75-110); Iron 121 ug/dL (49-181); Potassium 4.1 mmol/L (3.4-5.0); Sodium 139 mmol/L (137-145)
[2020-09-13 12:57] LABS: Percent Iron Saturation 35 % (20-50)
== END 2020-09-13 09:24 | disposition home or self-care (01) ==
LOC: ANHLAB 09:25
PROVIDERS: PCP Pediatrics; Visit Provider Internal Medicine Hematology & Oncology
DX: C85.93 Non-Hodgkin lymphoma, unspecified, intra-abdominal lymph nodes (principal)
CPT/HCPCS: 36415; 80053; 82728; 83540; 83550; 85025

== ENCOUNTER 2021-01-19 08:49 | Outpatient (CLI) | payer MEDICARE, SELFPAY ==
[2021-01-19 09:41] LABS: Basophils Percent Auto 0.7 % (0.2-1.2); Eosinophils Absolute Auto 0.1 K/mm3 (0-0.3); Eosinophils Percent Auto 2.1 % (0-4.4); Hematocrit 39.3 % (42.0-52.0); Hemoglobin 13.2 g/dL (14.0-18.0); Immature Granulocyte Absolute 0.05 K/mm3 (0.00-0.031); Immature Granulocyte Percent A 1.2 % (0-0.5); Lymphocytes Percent Auto 19.1 % (18.3-44.2); Mean Corpuscular HGB Conc 33.6 g/dl (32-36); Mean Corpuscular Hemoglobin 31.2 pg (26-34); Mean Corpuscular Volume 92.9 fl (80-100); Mean Platelet Volume 8.7 fl (7.4-10.4); Monocytes Absolute Auto 0.6 K/mm3 (0.1-0.6); Monocytes Percent Auto 15.3 % (2.6-8.5); Neutrophils Absolute Auto 2.6 K/mm3 (1.3-6.7); Neutrophils Percent Auto 61.6 % (45.5-73.1); Platelet Count Result 135 k/mm3 (150-375); Red Blood Count 4.23 M/mm3 (4.6-6.20); Red Cell Distribution Width 13.6 % (11.5-14.5); White Blood Count 4.2 K/mm3 (4.5-10.0)
[2021-01-19 11:06] LABS: Alanine Aminotransferase 21 U/L (4-50); Albumin Level 4.3 g/dL (3.5-5.1); Alkaline Phosphatase 115 U/L (38-126); Anion Gap 10 mmol/L (8-16); Aspartate Amino Transferase 33 U/L (17-59); Bilirubin,Total 0.6 mg/dL (0.2-1.3); Blood Urea Nitrogen 23 mg/dL (9-20); Calcium 9.7 mg/dL (8.4-10.2); Carbon Dioxide 24 mmol/L (22-30); Chloride 106 mmol/L (98-107); Estimated Glomerular Filt Rate 43; Glucose 121 mg/dL (65-110); Potassium 4.1 mmol/L (3.4-5.0); Sodium 140 mmol/L (137-145)
[2021-01-19 11:13] LABS: Hemoglobin A1C 6.8 % (<5.7)
[2021-01-19 12:11] LABS: Folic Acid 11.6 ng/mL (2.76->20)
== END 2021-01-19 08:50 | disposition home or self-care (01) ==
LOC: ANHLAB 08:52
PROVIDERS: PCP Pediatrics; Visit Provider Internal Medicine Hematology & Oncology
DX: E11.9 Type 2 diabetes mellitus without complications (principal); G62.9 Polyneuropathy, unspecified; D64.9 Anemia, unspecified
CPT/HCPCS: 36415; 80053; 82607; 82728; 82746; 83036; 85025

== ENCOUNTER 2021-08-30 09:38 | Outpatient (CLI) | payer MEDICARE, SELFPAY ==
--- NOTE | ~2021-08-30 | CT_ITS ---
EXAMINATION: CT abdomen pelvis wo con DATE: 08/30/2021 10:27 INDICATION: Non-Hodgkin's lymphoma of intra-abdominal lymph nodes TECHNIQUE: Computed tomography (CT) of the abdomen and pelvis was performed without intravenous contr ast. Automated exposure control and iterative reconstruction technique were employed. Exam dose: 886 .69 mGy-cm total exam DLP. COMPARISON: 09/05/2020 CT abdomen pelvis FINDINGS: The lung bases are clear of infiltrate or consolidation. Normal heart size. No pericardial or pleural effusion. The liver, gallbladder, spleen, pancreas, bile and pancreatic ducts and adrenal glands are unremarkab le. Bilateral renal scarring and atrophy Status post cystectomy and ileal conduit. Mild bilateral hydronephrosis. Inflatable penile implant device. Normal caliber of the abdominal aorta, without aneurysm. There is stable or mildly diminished periaortic and aortocaval and right iliac soft tissue thickening ; PET CT imaging would be more accurate for determination of any active lymphadenopathy. Numerous diverticula of the sigmoid and descending colon; no CT evidence of diverticulitis. No bowel obstruction, bowel wall thickening, pneumatosis or intraperitoneal free air. Diffuse idiopathic skeletal hyperostosis of the thoracolumbar spine. No suspicious osteolytic or oste oblastic lesions. IMPRESSION: No significant change since 09/05/2020 Reviewed, dictated and finalized at Location A. Reviewed, dictated and finalized at location A.
== END 2021-08-30 09:39 | disposition home or self-care (01) ==
LOC: ANHIMG 09:41
PROVIDERS: PCP Pediatrics; Visit Provider Internal Medicine Hematology & Oncology
DX: C85.93 Non-Hodgkin lymphoma, unspecified, intra-abdominal lymph nodes (principal)
CPT/HCPCS: 74176

== ENCOUNTER 2023-01-21 10:35 | Outpatient (CLI) | payer MEDICARE, SELFPAY ==
--- NOTE | ~2023-01-21 | CT_ITS ---
EXAMINATION: CT chest abdomen pelvis wo con DATE: 01/21/2023 10:54 INDICATION: Non-Hodgkin lymphoma. TECHNIQUE: Computed tomography (CT) of the chest, abdomen, and pelvis was performed without intraveno us contrast. Automated exposure control and iterative reconstruction technique were employed. The dos e-length product was 1368.67 mGy-cm. COMPARISON: CT abdomen and pelvis 08/30/2021, chest CT 05/31/2020 FINDINGS: CHEST CT: There is a 2 mm nodule in right middle lobe, likely benign. There is a 3 mm nodule in left upper lobe , likely benign. A calcified left lung nodule and calcified left hilar and mediastinal lymph nodes ar e consistent with old granulomatous disease. No pleural effusion. There is a left subclavian port wit h tip at superior cavoatrial junction. The heart size is normal. There are coronary artery calcificat ions. No pericardial effusion. There are bridging endplate osteophytes at multiple levels in the spin e, consistent with diffuse idiopathic skeletal hyperostosis (DISH). ABDOMEN/PELVIS CT: The liver and gallbladder are normal. Calcifications in the spleen are consistent with old granulomat ous disease. The pancreas and adrenal glands are normal. There is cortical thinning of the kidneys. T here are cysts in the kidneys measuring up to 16 mm. There is a 13 mm hyperdense mass in left kidney. There is mild bilateral hydronephrosis and proximal hydroureter. There are changes of ventral hernia repair. There is an ileal conduit on the left. A penile prosthesis is noted. There is diverticulosis of the colon without evidence of diverticulitis. The appendix is not visualized. There is calcified atherosclerosis of the aorta and many of the other arteries. There is confluent fat stranding and sof t tissue attenuation in the retroperitoneum including in the area of the bilateral common iliac lymph node chains, left para-aortic chain, and aortocaval chain. For example, right common iliac lymphaden opathy measures 3.2 x 2.8 cm that measured 3.0 x 2.7 cm on 08/30/21. There is fat stranding in the are a of the periportal chain. There is no free intraperitoneal fluid. There is mild lumbar spondylosis. IMPRESSION: 1. Slightly improved distribution of soft tissue attenuation and fat stranding in the area of peripor cain and retroperitoneal lymph node chains, consistent with treated lymphoma. PET/CT may be useful to differentiate scarring from residual viable lymphoma. 2. Mild bilateral hydronephrosis and proximal hydroureter. 3. 13 mm hyperdense left kidney mass, which may be a hemorrhagic cyst or less likely a neoplasm. Cons ider abdomen CT or MRI without and with contrast. Reviewed, dictated and finalized at location E. IMPRESSION: 1. Slightly improved distribution of soft tissue attenuation and fat stranding in the area of periportal and retroperitoneal lymph node chains, consistent wit h treated lymphoma. PET/CT may be useful to differentiate scarring from residua l viable lymphoma. 2. Mild bilateral hydronephrosis and proximal hydroureter. 3. 13 mm hyperdense left kidney mass, which may be a hemorrhagic cyst or less l ikely a neoplasm. Consider abdomen CT or MRI without and with contrast.
== END 2023-01-21 10:36 | disposition home or self-care (01) ==
PROVIDERS: PCP Pediatrics; Visit Provider Internal Medicine Hematology & Oncology
DX: C85.93 Non-Hodgkin lymphoma, unspecified, intra-abdominal lymph nodes (principal); N13.30 Unspecified hydronephrosis
CPT/HCPCS: 71250; 74176

== ENCOUNTER 2023-01-31 08:37 | Outpatient (CLI) | payer MEDICARE, SELFPAY ==
[2023-01-31 09:02] LABS: Basophils Percent Auto 0.5 % (0.2-1.2); Eosinophils Absolute Auto 0.1 K/mm3 (0-0.3); Eosinophils Percent Auto 1.2 % (0-4.4); Hematocrit 41.4 % (42.0-52.0); Hemoglobin 13.8 g/dL (14.0-18.0); Immature Granulocyte Absolute 0.03 K/mm3 (0.00-0.031); Immature Granulocyte Percent A 0.5 % (0-0.5); Lymphocytes Absolute Auto 1.12 K/mm3 (0.9-3.2); Lymphocytes Percent Auto 17.1 % (18.3-44.2); Mean Corpuscular HGB Conc 33.3 g/dl (32-36); Mean Corpuscular Hemoglobin 31.3 pg (26-34); Mean Corpuscular Volume 93.9 fl (80-100); Monocytes Absolute Auto 0.8 K/mm3 (0.1-0.6); Monocytes Percent Auto 11.4 % (2.6-8.5); Neutrophils Absolute Auto 4.6 K/mm3 (1.3-6.7); Neutrophils Percent Auto 69.3 % (45.5-73.1); Platelet Count Result 155 k/mm3 (150-375); Red Blood Count 4.41 M/mm3 (4.6-6.20); Red Cell Distribution Width 13.5 % (11.5-14.5); White Blood Count 6.6 K/mm3 (4.5-10.0)
[2023-01-31 10:53] LABS: Alanine Aminotransferase 18 U/L (6-50); Albumin Level 4.3 g/dL (3.5-5.1); Alkaline Phosphatase 120 U/L (38-126); Anion Gap 7 mmol/L (8-16); Aspartate Amino Transferase 26 U/L (17-59); Bilirubin,Total 0.7 mg/dL (0.2-1.3); Blood Urea Nitrogen 22 mg/dL (9-20); Calcium 9.3 mg/dL (8.4-10.2); Carbon Dioxide 27 mmol/L (22-30); Chloride 103 mmol/L (98-107); Cholesterol 101 mg/dL (0-200); Estimated Glomerular Filt Rate 46; Glucose 118 mg/dL (65-110); HDL Direct 30 mg/dL; Potassium 3.9 mmol/L (3.4-5.0); Sodium 137 mmol/L (137-145); Triglycerides 104 mg/dL (<150)
[2023-01-31 11:04] LABS: LDL Cholesterol Direct 53 mg/dL
[2023-01-31 11:37] LABS: Hemoglobin A1C 6.2 % (<5.7)
== END 2023-01-31 08:38 | disposition home or self-care (01) ==
LOC: ANHLAB 08:52
PROVIDERS: PCP Pediatrics; Visit Provider Pediatrics
DX: E11.22 Type 2 diabetes mellitus with diabetic chronic kidney disease (principal); N18.31 Chronic kidney disease, stage 3a; E78.2 Mixed hyperlipidemia
CPT/HCPCS: 36415; 80053; 80061; 83036; 85025

== ENCOUNTER 2023-07-05 09:58 | Outpatient (CLI) | payer MEDICARE, SELFPAY ==
--- NOTE | ~2023-07-05 | CT_ITS ---
Non-contrast CT scan of the Abdomen and Pelvis Clinical indication: Lymphoma Technique: 2.5 mm axial scans were obtained through the abdomen and pelvis without intravenous or or al contrast. Dose reduction technique was used on this scan by utilizing automated exposure control a nd iterative reconstruction technique. The dose-length product (DLP) was 1001.63 mGy-cm. COMPARISON: 01/21/2023 Findings: Images through the lung bases reveal no abnormalities. There is mild bilateral hydroureteronephrosis. No renal stone identified. No ureteral stones seen. The liver, spleen, pancreas, gallbladder, and adrenals appear normal. There are atherosclerotic calci fications of the aorta. There are mild infiltrative changes at the para-aortic region/retroperitoneum . . There is no evidence of bowel obstruction. Colonic diverticulosis noted, especially the sigmoid colon . Images through the pelvis were performed. There is no evidence of ascites or lymphadenopathy. Patient is status post cystectomy and prostatectomy, with ileal conduit in place. Impression: No definite evidence for active malignancy or metastatic disease. No lymphadenopathy evident. Status post cystectomy/prostatectomy, with ileal conduit in place. Mild bilateral hydroureteronephros is, similar to prior exam. Mild infiltrative changes in the retroperitoneum are unchanged. This could reflect postoperative or p ostradiation change. Reviewed, dictated and finalized at location . S [employer] Impression: No definite evidence for active malignancy or metastatic disease. No lymphadeno uday evident. Status post cystectomy/prostatectomy, with ileal conduit in place. Mild bilater al hydroureteronephrosis, similar to prior exam. Mild infiltrative changes in the retroperitoneum are unchanged. This could refl ect postoperative or postradiation change.
== END 2023-07-05 09:59 | disposition home or self-care (01) ==
LOC: ANHIMG 09:59
PROVIDERS: PCP Pediatrics; Visit Provider Internal Medicine Hematology & Oncology
DX: C85.93 Non-Hodgkin lymphoma, unspecified, intra-abdominal lymph nodes (principal); N13.4 Hydroureter; Z90.6 Acquired absence of other parts of urinary tract; Z90.79 Acquired absence of other genital organ(s)
CPT/HCPCS: 74176

== ENCOUNTER 2023-07-29 13:00 | Outpatient (CLI) | payer MEDICARE, SELFPAY ==
[2023-07-29 13:51] LABS: Prothrombin Time 13.3 Seconds (11.1-14.7)
[2023-07-29 13:52] LABS: Partial Thromboplastin Time 27.2 Seconds (22.3-36.8)
== END 2023-07-29 13:01 | disposition home or self-care (01) ==
LOC: ANHSURGERY 13:04
PROVIDERS: Anesthesiology; PCP Pediatrics; Visit Provider Surgery
DX: N18.9 Chronic kidney disease, unspecified (principal); Z01.818 Encounter for other preprocedural examination
CPT/HCPCS: 36415; 85610; 85730

== ENCOUNTER 2023-08-01 01:16 | Day surgery (SDC) | payer MEDICARE, SELFPAY ==
[2023-07-25 15:16] VITALS: BMI 33.5
--- NOTE | 2023-07-25 15:32 | PC.NURSE ---
Report to the Outpatient Waiting Room, entrance under the green pavilion located off [facility], at time __6:00AM on date __08/01/23 . Planned Procedure Time: ___7:30AM . Time changes happen often and if your time is changed the preop area will call you the afternoon before. - You and your visitor will be asked to self-screen and do not enter if you have any COVID symptoms. - A mask is optional within the hospital at this time. Patients may have clear liquids (water, carbonated beverages, clear teas, apple juice) until 3 hours prior to surgery with a maximum of 20 ounces. - No food from midnight until time of surgery. Take the following medications with a SIP of water the morning of surgery: NONE____(UNLESS PATIENT STARTS CIPRO, THEN TAKE ON THE MORNING OF SURGERY) DO NOT STOP ANY OF YOUR OTHER PRESCRIPTION MEDICATIONS PRIOR TO SURGERY ?EXCEPT THE FOLLOWING Medications to discontinue per physician NONE Date to take last dose Please no make-up, nail chinese, hairspray, perfume, deodorant, or body powder the day of surgery. No jewelry (including any body piercings) or valuables the day of surgery, leave them at home. Please take a shower or bath the night before, or the morning of, surgery with an antibacterial soap. Wear comfortable, loose fitting clothing. - Jewelry must be removed prior to entering the operating room. Rings and piercings that are not removed may be cut off. - The hospital will not accept responsibility for valuables. - Please leave all valuables, including medications, at home the day of surgery. If you are going home after surgery, a licensed local company truck driver must drive you home. - NO public transportation without another adult if you receive anesthesia. - We recommend that an adult stay with you for 24 hours following discharge. - We also recommend that you do not drive, make important decision, drink alcoholic beverages, or take any drugs that were not prescribed by your health care provider for at least 24 hours after your discharge time. Follow any additional instructions given to you from your surgeon. If you or anyone in your household have experienced Covid symptoms in the past week, please notify your surgeon or the nurse liaison at the phone number below for possible testing. Telephone instructions given to __PATIENT and asked if any additional questions and then verbalized understanding. Patient advised to call surgeon office or pre surgery nurse liaison [phone] if any additional questions.
[2023-08-01 06:13] VITALS: BP 128/81; PULSE 67; RESP 14; TEMP 36.4; O2SAT 98
[2023-08-01 06:25] VITALS: BMI 33.5
[2023-08-01] MEDS: LACTATED RINGERS 1,000 ML 30 ML IV CONT (06:35)
--- NOTE | 2023-08-01 07:20 | WPDANESEPPF ---
Anes - Initial Pre Proc Eval Procedure: Operation Date: 08/01/23 07:30 Proposed Procedures p Removal Andreas Cath - Ewelina Narvaez MD Date/Time: 08/01/23 07:20 Surgeon: Ewelina Narvaez MD Pre Op Diagnosis: non hodgkin's lymphoma intra abdominal lymph nodes Patient Data Age: 68 Gender: M Height: 1.73 m Weight: 99.9 kg Last Vital Signs Temp 97.5 F L 08/01/23 06:13 Pulse 67 08/01/23 06:13 Resp 14 08/01/23 06:13 BP 128/81 08/01/23 06:13 Pulse Ox 98 08/01/23 06:13 O2 Del Method Room Air 08/01/23 06:13 Allergies Allergy/AdvReac Type Severity Reaction Status Date / Time gadobenic acid Allergy Unknown Itching Verified 08/01/23 06:24 [From contrast - MRI] iohexol Allergy Unknown Itching Verified 08/01/23 06:24 [From contrast - CT, X-RAY] levofloxacin Allergy Unknown TENDON PAIN Verified 08/01/23 06:24 Home Medications Medication Instructions Recorded Confirmed Type allopurinol 100 mg tablet 100 mg PO DAILY 08/25/19 07/25/23 History atorvastatin 40 mg tablet 40 mg PO DAILY 08/25/19 07/25/23 History trazodone 50 mg tablet 50 mg PO HS 08/25/19 07/25/23 History loratadine 10 mg tablet (Claritin) 10 mg PO PRN allergies 01/13/20 07/25/23 History ferrous sulfate 325 mg (65 mg 325 mg PO 2XW 07/15/20 07/25/23 History iron) tablet ciprofloxacin HCl 500 mg tablet 500 mg PO BID PRN INFECT 07/25/23 07/25/23 History valsartan 160 mg tablet 160 mg PO QAM 07/25/23 07/25/23 History Patient hx anesthesia problems: none Family hx anesthesia problems: none Results Review: All pre-operative results and documents have been reviewed as part of the pre-operative evaluation. [facility] Past Medical History Medical History Bladder cancer s/p radical cystectomy and ileal loop urinary diversion in 1998 Hyperlipidemia Hypertension Parastomal hernia Recurrent urinary tract infection Smoker 1 ppd x 40 years Surgical History Surgical History (Updated 05/02/20 @ 12:17 by Henrique Machado, ) H/O prostatectomy History of penile implant History of total cystectomy History of urostomy Hx of hernia repair Family History Family History Father Bladder cancer Sibling Bladder cancer Mother Cancer Father Lung cancer Sibling Bladder cancer Social History Social History Smoking packs per day: 1 Smoking cigarettes per day: 20.0 Years smoked: 30 Smoking pack-years: 30.00 Smoking status: Former smoker Tobacco type: cigarettes Smoking end date: 10/03/19 Alcohol intake: current Alcohol use details: 1 beer per month Substance use: never Living arrangements: with family Additional living arrangements comments: Gender identity (if verbalized by the patient): Male Spiritual care concerns: No Agree to blood products: Yes Anes - Eval Final PreProcedure Day of Procedure 08/01/23 07:20 Patient weight: normal Heart: regular rate and rhythm Lungs: clear to auscultation Airway: Mallampati scale class II Neurological: alert and oriented Last oral intake: >/= 8 hours ASA classification: III Emergent: no Anesthetic plan: proceed Anesthesia type and monitoring: general GIVS and standard monitoring Results Review: All pre-operative results and documents have been reviewed as part of the pre-operative evaluation. Informed Consent: The patient's anesthetic plan and its attendant risks and benefits were discussed with the patient/family/POA. Questions were solicited and answers provided to the satisfaction of the patient/family/POA.
--- NOTE | 2023-08-01 07:21 | PM.IMHP ---
H&P: HPI History of Present Illness Date/Time: 08/01/23 07:21 Chief Complaint: lymphoma Narrative: Pt is a 68 y/o M presenting for VAD removal s/p treatment of lymphoma. Pt reports VAD was placed in 10/23 and has had no issues. Pt denies any s/s infection, malfunction, etc. Review of Systems Review of Systems: All systems reviewed & are unremarkable except as noted in HPI and below PMFSH Past Medical History Medical History Bladder cancer s/p radical cystectomy and ileal loop urinary diversion in 1998 Hyperlipidemia Hypertension Parastomal hernia Recurrent urinary tract infection Smoker 1 ppd x 40 years Surgical History Surgical History H/O prostatectomy History of penile implant History of total cystectomy History of urostomy Hx of hernia repair Family History Family History Father Bladder cancer Sibling Bladder cancer Mother Cancer Father Lung cancer Sibling Bladder cancer Social History Social History Smoking packs per day: 1 Smoking cigarettes per day: 20.0 Years smoked: 30 Smoking pack-years: 30.00 Smoking status: Former smoker Tobacco type: cigarettes Smoking end date: 10/03/19 Alcohol intake: current Alcohol use details: 1 beer per month Substance use: never Living arrangements: with family Additional living arrangements comments: Gender identity (if verbalized by the patient): Male Spiritual care concerns: No Agree to blood products: Yes Meds Home Medications and Allergies Home Medications Medication Instructions Recorded Confirmed Type allopurinol 100 mg tablet 100 mg PO DAILY 08/25/19 07/25/23 History atorvastatin 40 mg tablet 40 mg PO DAILY 08/25/19 07/25/23 History trazodone 50 mg tablet 50 mg PO HS 08/25/19 07/25/23 History loratadine 10 mg tablet (Claritin) 10 mg PO PRN allergies 01/13/20 07/25/23 History ferrous sulfate 325 mg (65 mg 325 mg PO 2XW 07/15/20 07/25/23 History iron) tablet ciprofloxacin HCl 500 mg tablet 500 mg PO BID PRN INFECT 07/25/23 07/25/23 History valsartan 160 mg tablet 160 mg PO QAM 07/25/23 07/25/23 History Allergies Allergy/AdvReac Type Severity Reaction Status Date / Time gadobenic acid Allergy Unknown Itching Verified 08/01/23 06:24 [From contrast - MRI] iohexol Allergy Unknown Itching Verified 08/01/23 06:24 [From contrast - CT, X-RAY] levofloxacin Allergy Unknown TENDON PAIN Verified 08/01/23 06:24 Vital Signs Vital Signs - 24 hr 08/01/23 06:13 Temperature 36.4 C L Pulse Rate 67 Respiratory Rate 14 Blood Pressure 128/81 Pulse Oximetry 98 Oxygen Delivery Room Air Exam Const: General: cooperative, comfortable and no acute distress Chest: Other: L sided VAD - C/D/I Resp: Auscultation: clear to auscultation bilaterally Cardio: Rate: regular rate Rhythm: regular rhythm GI: Inspection: normal to inspection Assessment and Plan Assessment and plan (1) 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
--- NOTE | 2023-08-01 07:23 | WPDHPUPDATE1 ---
History and Physical Update Update Date/Time: 08/01/23 07:23 History and Physical has been reviewed, including an updated exam of the patient. There are NO changes in the patient's condition. Risks, benefits, and alternatives have been discussed and questions answered. Patient agrees to proceed with procedure.
[2023-08-01] MEDS: ceFAZolin 2 GM/D5W 50 ML 2 GM/50 ML BAG IVPB (07:30)
[2023-08-01] MEDS: BUPIVACAINE/EPINEPHRINE 0.5% 30 ML VIAL INFILTRATE (07:53)
--- NOTE | 2023-08-01 07:58 | P.OP_ITS ---
Procedure Note - Detailed Date of Procedure 08/01/23 Pre-op Diagnosis non hodgkin's lymphoma s/p treatment Post-op Diagnosis Same Procedure Performed removal L chest VAD Surgeon Ewelina Narvaez MD Anesthesia MAC and Local Indications 68 y/o M s/p treatment for lymphoma. Pt had L sided VAD placed about 4 years a go. Findings L SCV VAD Description of Procedure The patient was taken to the operating room and placed in the supine position. After adequate induction of MAC anesthesia, the patient was then prepped and draped in the normal sterile fashion. A time-out was then done to verify the patient's identity, as well as the procedure being performed. I began by localizing the area of the previously placed port in the left chest. After the area was adequately anesthetized, I made an incision through the previous incision to gain access to the port in the subcutaneous tissue. I was then able to identify the port and using dissection with the Bovie cautery, I was able to free the reservoir from the subcutaneous pocket. The reservoir was being held in by 2 sutures and these were subsequently cut. I was then able to remove the reservoir from the pocket. I then removed the catheter from the left subclavian vein in full. I then held pressure at the level the left subclavian vein for approximately 5 minutes. Hemostasis was noted and I irrigated the pocket. I then closed the subcutaneous tissue with 3-0 Vicryl suture. The skin was closed with 4-0 Monocryl subcuticular suture. Dermabond was placed on the wound. The patient tolerated the procedure well and was alert and awake in the operating room postoperative. The patient will be sent to the recovery room in stable condition. Estimated Blood Loss 5 Drains No Packing No Pathology None sent Complications No immediate complications Condition Stable Disposition PACU [facility] Billing Surgery - Charge Forward: Surgery Billing
[2023-08-01 08:02] VITALS: BP 105/65; PULSE 81; RESP 16; O2SAT 95
[2023-08-01 08:30] VITALS: BP 110/59; PULSE 73; RESP 16
== END 2023-08-01 08:55 | disposition home or self-care (01) ==
PROVIDERS: PCP Pediatrics; Visit Provider Surgery
PROC: (CPT 36589; principal; 2023-08-01 07:30)
DX: Z45.2 Encounter for adjustment and management of vascular access device (principal); I10 Essential (primary) hypertension; E78.5 Hyperlipidemia, unspecified; Z98.890 Other specified postprocedural states; Z87.891 Personal history of nicotine dependence; Z85.51 Personal history of malignant neoplasm of bladder; Z85.72 Personal history of non-Hodgkin lymphomas; Z92.21 Personal history of antineoplastic chemotherapy; Z80.52 Family history of malignant neoplasm of bladder; Z80.1 Family history of malignant neoplasm of trachea, bronchus and lung
CPT/HCPCS: 36590; J0690; J2250; J2704; J3010; J7120

== ENCOUNTER 2023-11-05 09:25 | Outpatient (CLI) | payer MEDICARE, SELFPAY ==
[2023-11-05 09:41] LABS: Basophils Absolute Auto 0.1 K/mm3 (0.0-0.1); Basophils Percent Auto 1.1 % (0.2-1.2); Eosinophils Absolute Auto 0.1 K/mm3 (0-0.3); Eosinophils Percent Auto 1.6 % (0-4.4); Hematocrit 42.9 % (42.0-52.0); Hemoglobin 14.4 g/dL (14.0-18.0); Immature Granulocyte Absolute 0.03 K/mm3 (0.00-0.031); Immature Granulocyte Percent A 0.5 % (0-0.5); Lymphocytes Absolute Auto 1.31 K/mm3 (0.9-3.2); Mean Corpuscular HGB Conc 33.6 g/dl (32-36); Mean Corpuscular Hemoglobin 31.6 pg (26-34); Mean Corpuscular Volume 94.3 fl (80-100); Mean Platelet Volume 8.9 fl (7.4-10.4); Monocytes Absolute Auto 0.6 K/mm3 (0.1-0.6); Monocytes Percent Auto 10.1 % (2.6-8.5); Neutrophils Absolute Auto 4.1 K/mm3 (1.3-6.7); Neutrophils Percent Auto 65.7 % (45.5-73.1); Platelet Count Result 146 k/mm3 (150-375); Red Blood Count 4.55 M/mm3 (4.6-6.20); Red Cell Distribution Width 12.6 % (11.5-14.5); White Blood Count 6.2 K/mm3 (4.5-10.0)
[2023-11-05 10:07] LABS: Alanine Aminotransferase 16 U/L (6-50); Albumin Level 4.4 g/dL (3.5-5.1); Alkaline Phosphatase 94 U/L (38-126); Anion Gap 8 mmol/L (4-12); Aspartate Amino Transferase 25 U/L (17-59); Bilirubin,Total 0.7 mg/dL (0.2-1.3); Blood Urea Nitrogen 23 mg/dL (9-20); Calcium 9.4 mg/dL (8.4-10.2); Carbon Dioxide 27 mmol/L (22-30); Chloride 106 mmol/L (98-107); Estimated Glomerular Filt Rate 40; Glucose 133 mg/dL (65-110); Lactate Dehydrogenase 139 U/L (120-246); Potassium 4.4 mmol/L (3.4-5.0); Sodium 141 mmol/L (137-145)
== END 2023-11-05 09:26 | disposition home or self-care (01) ==
PROVIDERS: PCP Pediatrics; Visit Provider Internal Medicine Hematology & Oncology
DX: C85.93 Non-Hodgkin lymphoma, unspecified, intra-abdominal lymph nodes (principal)
CPT/HCPCS: 36415; 80053; 83615; 85025

== ENCOUNTER 2024-03-09 09:34 | Outpatient (CLI) | payer MEDICARE, SELFPAY ==
--- NOTE | ~2024-03-09 | CT_ITS ---
CLINICAL INDICATION: Personal history of follicular lymphoma, diagnosed in October 2019 presents for fol low-up imaging following conclusion of treatment (Port-A-Cath removal performed in July 2023, XRT co ncluded in 2020). Personal history of bladder cancer status post radical cystectomy and ileal loop urinary diversion in 1998. COMPARISON: CT of the abdomen and pelvis dated 07/05/2023 and dating back to 02/04/2020. TECHNIQUE: An enhanced CT of the abdomen and pelvis was performed utilizing multislice spiral [employer] ue reconstructed at 5 mm slice thickness. Coronal and sagittal reconstructions were performed. This CT examination was performed utilizing dose reduction techniques. This CT examination was performed using one or more of the following dose reduction techniques: Automated exposure control, adjustment of the mA and/or kV according to patient's size, and the use of iterative reconstruction technique. FINDINGS/OBSERVATIONS: Visualized lower thorax: The bilateral lung bases are clear. Liver: Attenuation of the liver is homogeneous. The liver is increased in size measuring 19 cm in longitudinal dimension. Gallbladder and biliary system: The gallbladder is minimally distended, and otherwise unremarkable. Pancreas: Evaluation of the pancreas is limited secondary to the lack of intravenous contrast. Fatty atrophy of the pancreas is noted. Spleen: Punctate calcifications within the spleen, suggesting prior granulomatous disease. Kidneys: Nodular contour to the bilateral kidneys. Mild bilateral hydronephrosis, improved from previ ous examination dated 07/05/2023. Adrenal glands: Unremarkable Gastrointestinal tract: Colonic diverticulosis without surrounding inflammatory change. Appendix:The appendix is not definitively visualized. However, no pericecal inflammatory change is id entified suggest the presence of acute appendicitis. Vasculature: Dense calcification of the abdominal aorta without aneurysmal dilatation. Lymph nodes: Redemonstration of infiltration of the abraham-aortic fat planes, likely post treatment nayan nge. No pathologically enlarged or morphologically suspicious lymph nodes within the retroperitoneum or at the root of the mesentery. Pelvic structures:Post cystectomy and prostatectomy with ileal conduit in place, extending to the lef t of midline in the infraumbilical position. Body wall and musculoskeletal: Rectus diastases is noted. Trace degenerative disease within the lower thoracic and lumbosacral spine. No lytic or blastic lesions are identified. IMPRESSION: No cross-sectional imaging evidence of disease progression, or recurrent disease. Improved hydroureteronephrosis, seen on earlier examination. Stable periaortic infiltration within the retroperitoneum, likely posttreatment. Diverticulosis without diverticulitis. Reviewed, dictated and finalized at location A. [employer] IMPRESSION: No cross-sectional imaging evidence of disease progression, or recurrent diseas e. Improved hydroureteronephrosis, seen on earlier examination. Stable periaortic infiltration within the retroperitoneum, likely posttreatment . Diverticulosis without diverticulitis.
== END 2024-03-09 09:35 | disposition home or self-care (01) ==
PROVIDERS: PCP Pediatrics; Visit Provider Internal Medicine Hematology & Oncology
DX: C85.93 Non-Hodgkin lymphoma, unspecified, intra-abdominal lymph nodes (principal); K57.30 Diverticulosis of large intestine without perforation or abscess without bleeding
CPT/HCPCS: 74176

== ENCOUNTER 2024-03-19 11:17 | Outpatient (CLI) | payer MEDICARE, SELFPAY ==
[2024-03-19 11:37] LABS: Basophils Percent Auto 0.4 % (0.2-1.2); Eosinophils Absolute Auto 0.1 K/mm3 (0-0.3); Eosinophils Percent Auto 1.1 % (0-4.4); Hematocrit 41.3 % (42.0-52.0); Hemoglobin 13.8 g/dL (14.0-18.0); Immature Granulocyte Absolute 0.06 K/mm3 (0.00-0.031); Immature Granulocyte Percent A 0.8 % (0-0.5); Lymphocytes Absolute Auto 1.25 K/mm3 (0.9-3.2); Lymphocytes Percent Auto 17.7 % (18.3-44.2); Mean Corpuscular HGB Conc 33.4 g/dl (32-36); Mean Corpuscular Hemoglobin 31.2 pg (26-34); Mean Corpuscular Volume 93.4 fl (80-100); Monocytes Absolute Auto 0.6 K/mm3 (0.1-0.6); Monocytes Percent Auto 9.1 % (2.6-8.5); Neutrophils Percent Auto 70.9 % (45.5-73.1); Platelet Count Result 149 k/mm3 (150-375); Red Blood Count 4.42 M/mm3 (4.6-6.20); Red Cell Distribution Width 13.1 % (11.5-14.5); White Blood Count 7.1 K/mm3 (4.5-10.0)
[2024-03-19 11:40] LABS: Blood Urea Nitrogen 28 mg/dL (8-26); Carbon Dioxide 26 mmol/L (22-30); Chloride 104 mmol/L (98-109); Estimated Glomerular Filt Rate 40; Glucose 154 mg/dL (70-105); Potassium 3.8 mmol/L (3.5-4.9); Sodium 140 mmol/L (138-146)
[2024-03-19 12:58] LABS: Alanine Aminotransferase 15 U/L (6-50); Albumin Level 4.3 g/dL (3.5-5.1); Alkaline Phosphatase 86 U/L (38-126); Anion Gap 8 mmol/L (4-12); Aspartate Amino Transferase 22 U/L (17-59); Bilirubin,Total 0.5 mg/dL (0.2-1.3); Blood Urea Nitrogen 31 mg/dL (9-20); Calcium 9.6 mg/dL (8.4-10.2); Carbon Dioxide 26 mmol/L (22-30); Chloride 103 mmol/L (98-107); Estimated Glomerular Filt Rate 46; Glucose 155 mg/dL (65-110); Lactate Dehydrogenase 128 U/L (120-246); Potassium 3.9 mmol/L (3.4-5.0); Sodium 137 mmol/L (137-145)
== END 2024-03-19 11:18 | disposition home or self-care (01) ==
LOC: ANHLAB 11:18
PROVIDERS: PCP Pediatrics; Visit Provider Internal Medicine Hematology & Oncology
DX: C85.93 Non-Hodgkin lymphoma, unspecified, intra-abdominal lymph nodes (principal)
CPT/HCPCS: 36415; 80047; 80053; 83615; 85025

== ENCOUNTER 2024-09-16 12:19 | Outpatient (CLI) | payer MEDICARE, SELFPAY ==
--- OUTSIDE RECORDS SUMMARY | 2024-09-16 12:23 | XMS_ITS | Encounter Summary ---
Author Organization [facility] Address [facility] [place] [address] Care Team Providers Care Toe Trimmer Name Role Phone Mayank Valerio MD Primary Care Provide r Encounter Details Date Type Department Care Team (Late st Contact Info) Description 08/23/2011 Abstract [facility] Conversion Md, Generic Conversion, Social History Tobacco Use Types Packs/Day Years Used Date Smoking Tobacco: Never Assessed Sex and Gender Information Value Date Recorded Sex Assigned at Male 02/15/2022 12:59 PM CDT Legal Sex Male 7:54 PM CDT Gender Identity Male 02/15/2022 12:59 PM CDT Sexual Orientation Straight 02/15/2022 12 :59 PM CDT documented as of this encounter Plan of Treatment Upcoming Encounters Date Type Department Care Team (Late st Contact Info) Description 02/22/2025 1:00 PM CDT Office Visit [facility] [address] [place] [id number] [place] [address] [place] [address] documented as of this encounter Visit Diagnoses Not on filedocumented in this encounter Care Teams Toe Trimmer Relationship Specialty Start [place] [address] [place] [address] PCP - General INTERNAL MEDICINE 03/06/18 documented as of this encounter
--- OUTSIDE RECORDS SUMMARY | 2024-09-16 12:23 | XMS_ITS | Encounter Summary ---
Author Organization [facility] Address [address] [place] [address] Care Team Providers Care Back Padder Name Role Phone Unavailable Primary Care Provider Unavailabl e Encounter Details Date Type Department Care Team (Late st Contact Info) Description 10/16/2019 Lab Requisition [facility] Care Pathology Lab [address] [place] [address] Gt Langford MD [address] [facility] [address] [place] [id number] Illness, unspecified Social History Tobacco Use Types Packs/Day Years Used Date Smoking Tobacco: Never Assessed Sex and Gender Information Value Date Recorded Sex Assigned at Not on file 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 Gender Identity Not on file Sexual Orientation Not on file documented as of this encounter Plan of Treatment Not on file documented as of this encounter Procedures Procedure Name Priority Date/Time Associated Diagnosis Comments PATHOLOGY TISSUE Routine 10/14/2019 2:07 PM CDT Illness, unspecified documented in this encounter Results * PATHOLOGY TISSUE (10/14/2019 2:07 PM CDT) Case Report Surgical Pathology Report Case: [id number] Authorizing Provider: Gt Langford MD Collected: 10/14/2019 02:07 PM Ordering Location: [facility] Care Pathology Lab Received: 10/16/2019 10:15 AM Pathologist: Yara Phillips MD Specimen: Lymph Node Biopsy, OSC: [id number] 10/16/2019 5:26 PM CDT [facility] Final Diagnosis Lymph node, left supraclavicular, needle core biopsy: - Follicular lymphoma, as sampled. - See description. 10/16/2019 5:26 PM [facility] Microscopic Description and Comment Review of the left supraclavicular lymph node specimen reveals needle core biopsy portions of lymph node tissue with predominantly nodular architecture. The nodules are composed of lymphoid cells which are mostly small to intermediate in size, and have nuclear membrane indentations. Within the nodules, there is a paucity of tingible body macrophages, and no polarization is appreciated. Mantle zones are not well-preserved. Immunohistochemical stains are performed on block A1 in the [facility] Department of Pathology, with appropriately reactive controls, to further define the immunoarchitecture and phenotype of the cells and demonstrate the following: CD20, CD10, BCL-2, and BCL-6: positive in the neoplastic cells. CD3 and CD5: negative in neoplastic cells. CD21 highlights multiple follicular dendritic cell meshworks. Per outside report, concurrent lymph node flow cytometry (, [id number]) detects an abnormal/monotypic WD75-gieuurtl B-cell population (52% of sample). The cells are reported to express CD45, CD10, CD19, CD20 (bright), CD38, FMC7 +/-, HLA-DR, and surface lambda light chains. Overall, these findings are most consistent with follicular lymphoma in the current sample of tissue. While the majority of cells are small, suggesting a low-grade lymphoma, definitive grading is recommended to be performed on an excisional specimen since the possibility of a higher grade, unsampled component cannot be excluded in a needle biopsy. Correlation with clinical findings is required. KR/MM 10/16/2019 5:26 PM [facility] Clinical History Lymphadenopathy. 10/16/2019 5:26 PM [facility] Materials Received Received are 2 slides and 1 block (A1) labeled [id number] along with a copy of the outside pathology report. [place] [address]. All original materials are returned to the referring institution, along with a copy of our final report. 10/16/2019 5:26 PM [facility] Disclaimer The performance characteristics of all immunohistochemical and indirect immunofluorescence stains (if any) cited in this report were determined by the Histopathology Laboratory of [facility]. Some of these tests were developed by our own laboratory and have not been cleared or approved by the US Food and Drug Administration. The FDA does not require this test to go through premarket FDA review. These tests are used for clinical purposes. They should not be regarded as investigational or for research. This laboratory is certified under the Clinical Laboratory Improvement Amendments (CLIA) as qualified to perform high complexity clinical laboratory testing. This case has been personally reviewed and interpreted by the attending (teaching) pathologist. 10/16/2019 5:26 PM CDT [facility] PATH[facility] Embedded Images 10/16/2019 5:26 PM CDT [facility] PATH[facility] Pathology/Cytolo gy BIOPSY OF LYMPH NODE / Unknown 10/14/2019 2:07 PM CDT 10/16/2019 10:15 AM CDT Gt Langford MD LAB - PATHOLOGY/CYTOLOGY ORDER BRITTANY Final Result [facility] PATHOLOG[facility] LAB [address] [place] [address], [facility] [phone] documented in this encounter Visit Diagnoses Diagnosis Illness, unspecified documented in this encounter
--- OUTSIDE RECORDS SUMMARY | 2024-09-16 12:23 | XMS_ITS | Encounter Summary ---
Author Organization [facility] Address [address] [place] [address] Care Team Providers Care Reporting Process Consultant Name Role Phone Mayank Valerio MD Primary Care Provider [phone]- [phone] Encounter Details Date Type Department Care Team ([facility] Contact Info) Description 03/16/2020 Chart Note [facility] Radiation Therapy [address] [place] [address] [place] [address] [place] [address] Social History Tobacco Use Types Packs/Day Years Used Date Smoking Tobacco: Every Day Cigarettes 1 40 Alcohol Use Standard Drinks/Week Comments Yes 0 (1 standard drink = 0.6 oz pur e alcohol) Sex and Gender Information Value Date Recorded Sex Assigned at Not on file Legal Sex Male 2:15 PM CDT Gender Identity Not on file Sexual Orientation Not on file COVID-19 Exposure Response Date Recorded In the last month, have you been in contact with someone who was confirmed or suspected to have Coronavirus / COVID-19? 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 [address] [place] [address] Lang Torres MD [address] [facility] [address] [place] [address] documented as of this encounter Visit Diagnoses Not on filedocumented in this encounter Care Teams Reporting Process Consultant Relationship Specialty Start Date End Date Mayank Valerio MD PCP - General Internal Medicine 02/10/20 documented as of this encounter
--- OUTSIDE RECORDS SUMMARY | 2024-09-16 12:23 | XMS_ITS | Clinical Summary ---
Author Organization [facility] Address [address] [place] [address] Care Team Providers Care Drag Out Man Name Role Phone Unavailable Primary Care Provider Unavailabl e Source Comments [facility],non-owned Affiliates and Associated Physician Practices is amultiple site organization consisting of ambulatory clinics and hospital sitesin [place], [place], [place] and [place]. This disclosure is being madepursuant to the Care Everywhere program and may not contain all information available regarding this patient. Last updated 18.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 Gender Identity Not on file Sexual Orientation Not on file Plan of Treatment Health Maintenance Due Date Last Done Comments COLOGUARD (AGES 45-75) - COL ON CA SCREENING 1954 COLON MONITORING 1954 COLONOSCOPY - COLON CA SCREENING 1954 CT COLONOGRAPHY - COLON CA SCREENING 1954 Colorectal Cancer Screening 1954 FIT - COLON CA SCREENING 1954 FLEX SIG - COLON CA SCREENING 1954 LIPID TESTING 1954 HEPATITIS C SCREENING 01/12/1972 DTAP/TDAP/TD VACCINES (1 - Tdap) 1973 PNEUMOCOCCAL VACCINE 50+ (1 of 1 - PCV) 01/17/2004 ZOSTER VACCINE (1 of 2) 01/17/2004 COVID-19 VACCINE ( - 2023-2 5 season) 2024 DEPRESSION SCREENING 05/06/2024 INFLUENZA VACCINE (Season Ended) 2025 Respiratory Syncytial Virus (RSV) Vaccine Pt: or over 60 yrs (1 - 1-dose 75+ series) 2029 HEPATITIS B VACCINE Aged Out No longe r eligible based on patient's age to complete this topic HIB VACCINE Aged Out No longer eligi ble based on patient's age to complete this topic HPV VACCINE Aged Out No longer eligi ble based on patient's age to complete this topic MENINGOCOCCAL (Group B) VACC INE SHARED DECISION-MAKING Aged Out No longer eligibl e based on patient's age to complete this topic MENINGOCOCCAL GROUPS A/C/Y/W VACCINE Aged Out No longer eligible b ased on patient's age to complete this topic Insurance MEDICARE
--- OUTSIDE RECORDS SUMMARY | 2024-09-16 12:23 | XMS_ITS | Clinical Summary ---
Author Organization [facility] Address [facility] [place] [address] Care Team Providers Care Mental Measurements Teacher Name Role Phone Mayank Valerio MD Primary Care Provide r Allergies Active Allergy Reactions Criticality Noted Date Comments Iodine Hives Levofloxacin Other (see comment), Shortness of Breath High 09/10/2019 Metformin Diarrhea Low 08/24/2021 Medications aspirin 81 MG chewable tablet Chew 1 tablet (81 mg total) by mouth as needed. Active valsartan (DIOVAN) 160 MG tabletIndications :Essential hypertension, benign Take 1 tablet by mouth once daily 90 tablet 3 01/17/20 24 Active metFORMIN ER (GLUCOPHAGE-XR) 500 MG 24 hr tabletIndications :Type 2 diabetes mellitus with stage 3a chronic kidney disease, without long-term current use of insulin ([facility]) Take 1 tablet (500 mg total) by mouth daily with breakfast. 30 tablet 11 02/20/20 24 Active atorvastatin (LIPITOR) 40 MG tabletIndications :Mixed hyperlipidemia Take 1 tablet by mouth once daily 90 tablet 2 04/17/20 24 Active hydrocortisone (HYTONE) 2.5 % ointmentIndicatio ns:External hemorrhoids Apply topically 2 (two) times daily. 29 g 3 08/21/19 25 Active traZODone (DESYREL) 50 MG tabletIndications :Insomnia, unspecified type TAKE 1 TABLET BY MOUTH ONCE DAILY AT BEDTIME 90 tablet 2 09/12/19 25 Active allopurinol (ZYLOPRIM) 100 MG tabletIndications :Gout, unspecified cause, unspecified chronicity, unspecified site Take 1 tablet by mouth once daily 90 tablet 2 09/12/19 25 Active traZODone (DESYREL) 50 MG tabletIndications :Insomnia, unspecified type TAKE 1 TABLET BY MOUTH ONCE DAILY AT BEDTIME 90 tablet 1 03/23/20 24 2024 Discontinued allopurinol (ZYLOPRIM) 100 MG tabletIndications :Gout, unspecified cause, unspecified chronicity, unspecified site Take 1 tablet by mouth once daily 90 tablet 1 03/23/20 24 2024 Discontinued hydrocortisone (HYTONE) 2.5 % ointmentIndicatio ns:External hemorrhoids Apply topically 2 (two) times daily. 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 ([facility]) 12/16/2019 Cigarette smoker 09/23/2018 Hyperplastic colon polyp 09/23/2018 Diverticulosis 09/23/2018 History of primary bladder cancer 03/14/2018 Essential hypertension, benign 03/14/2018 Recurrent pyelonephritis 12/24/2014 Overview (09/18/2018): Pyelonephritis, unspecified Insomnia 08/25/2012 Overview (09/18/2018): Insomnia, unspecified Mixed hyperlipidemia 08/25/2012 Overview (09/18/2018): Mixed hyperlipidemia Hx of total cystectomy 03/06/1999 Overview (09/23/2018): Radical cystectomy done for bladder cancer Resolved Problems Problem Noted Date Diagnosed Date Resolved Date History of transitional cell carcinoma of kidney 08/20/2024 08/20/2024 Skin tag 03/27/2021 02/27/2024 Type 2 diabetes mellitus wit hout complication, without long-term current use of insulin ([facility]) 09/20/2020 02/15/2022 History of bladder cancer 10/06/2019 Chronic kidney disease (CKD) stage G1/A1, glomerular filtration rate (GFR) equal to or greater than 90 mL/min/1.73 square meter and albuminuria creatinine ratio less than 30 mg/g 03/14/2018 02/15/2022 Encounter for preventive health examination 09/22/2013 01/15/2020 Encounters Date Type Department Care Team Description 08/20/2024 1:00 PM CDT Office Visit [address] [place] [address] Mayank Valerio MD Follow Up (6 month); Lab Results (Lab review) 08/20/2024 Travel 08/14/2024 8:14 AM CDT - 08/14/2024 11:59 PM CDT Hospital Encounter [facility] [address] [place] [address] Mayank Valerio MD Discharge Disposition: Home or Self Care (Routine Discharge) 08/14/2024 Travel from Last 3 Months Immunizations Immunization Administration Dates Next Due Fluzone High Dose - >Age 65 (Prefilled Syringe) 04/19/2022,04/04/2021,03/01/2020 Influenza (Generic) 02/12/2013,03/03/2012,2010 Influenza Adult (Generic) 03/03/2019,04/10/2017, 03/02/2016 MODERNA COVID-19 (12+) MRNA, LNP-S, PF, 100 MCG/ 0.5 ML DOSE 04/04/2021,07/09/2020,06/11/2020 Tdap (Boostrix) 12/07/2023 Family History Medical History Relation Comments Cancer Father Cancer Mother Relation Status Comments Father Mother Social History Tobacco Use Types Packs/Day Years Used Date Smoking Tobacco: Former Cigarettes Q uit: 09/2019 Passive Smoke Exposure: Past Smokeless Tobacco: Never Tobacco Cessation:Counseling Given: No Alcohol Use Standard Drinks/Week Comments Yes 0 (1 standard drink = 0.6 oz pur e alcohol) OCCASIONAL AUDIT-C Answer Date Recorded Frequency of Alcohol Consumption Monthly or less 03/13/2018 Average Number of Drinks Not on file 018 Frequency of Binge Drinking Not on file 12/2017 PHQ-2 Answer Date Recorded Patient Health Questionnaire-2 Score 0 08/20/2024 Sex and Gender Information Value Date Recorded Sex Assigned at Male 02/15/2022 12:59 PM CDT Legal Sex Male 7:54 PM CDT Gender Identity Male 02/15/2022 12:59 PM CDT Sexual Orientation Straight 02/15/2022 12 :59 PM CDT Last Filed Vital Signs Vital Sign Reading Time Taken Comments Blood Pressure 128/70 08/20/2024 12:47 PM CDT Pulse 67 08/20/2024 12:47 PM CDT Temperature 36.9 C (98.4 F) 08/20/2024 12:47 PM CDT Respiratory Rate 20 08/20/2024 12:47 PM CDT Oxygen Saturation 96% 08/20/2024 12:47 PM CDT Inhaled Oxygen Concentration - - Weight 96.4 kg (212 lb 9.6 oz) 08/20/2024 12:47 PM CDT Height 172.7 cm (5' 8 ) 12/16/2023 1:28 PM CDT Body Mass Index 32.33 12/16/2023 1:28 PM CDT Plan of Treatment Upcoming Encounters Date Type Department Care Team (Late st Contact Info) Description 02/22/2025 1:00 PM CDT Office Visit [facility] [address] [address] [place] [address] [place] [address] [place], [place] [id number] Health Maintenance Due Date Last Done Comments Colorectal Cancer Screening Colonoscopy (10 Years) 1954 Diabetes: Retinopathy Eye Exam 01/17/1972 Hepatitis C 01/17/1972 Pneumococcal Vaccine: 50+ Years (1 of 2 - PCV) 1973 Zoster Vaccines (1 of 2) 01/17/2004 RSV Immunization or 60+ Years (1 - Risk 60-74 years 1-dose series) 2014 Annual Medicare Wellness Visit 2019 COVID-19 Vaccine ( season) 2024 04/04/2021, 07/09/2020, 06/11/2020 Kidney Health Evaluation 02/11/2025 02/12/2024 Lipid Panel 02/11/2025 02/12/2024, 01/05, 08/29/2020 Hemoglobin A1C 02/13/2025 08/14/2024, 1001/2024, 01/31/2023, Additional history exists DTaP, Tdap and Td Vaccines (2 - Td or Tdap) 12/06/2033 12/07/2023 AAA SCREENING Completed 01/21/2023, 01/04, 09/05/2020, Additional history exists PHQ-2 ([facility]) Completed 08/20/2024 Meningococcal B Vaccine Aged Out No l onger eligible based on patient's age to complete this topic Meningococcal Vaccine Aged Out No tushar jodi eligible based on patient's age to complete this topic RSV Immunizations Under 20 Months Aged Out No longer eligible based on patient's age to complete this topic Procedures Procedure Name Priority Date/Time Associated Diagnosis Comments COMPREHENSIVE METABOLIC PANEL Routine 08/14/2024 8:20 AM CDT Type 2 diabetes mellitus with stage 3a chronic kidney disease, without long-term current use of insulin ([facility]) HEMOGLOBIN, GLYCOSYLATED Routine 08/14/2024 8:20 AM CDT Type 2 diabetes mellitus with stage 3a chronic kidney disease, without long-term current use of insulin ([facility]) LIPID PANEL Routine 02/12/2024 8:35 AM CDT Type 2 diabetes mellitus with stage 3a chronic kidney disease, without long-term current use of insulin ([facility]) Mixed hyperlipidemia CT ABD+PEL WO CON STAT 08/24/2019 8:0 4 PM CDT COLONOSCOPY Routine [facility] from Last 3 Months or Most Recently Relevant to Health Maintenance Results * (ABNORMAL) HEMOGLOBIN, GLYCOSYLATED (08/14/2024 8:20 AM CDT) HGB A1C 6.6(H) <5.7 % 08/14/2024 3:51 PM CDT [facility] Comment: ADA GUIDELINES 2010 5.7 TO 6.4% INCREASED RISK OF DIABETES > OR = 6.5% CONSISTENT WITH DIABETES ESTIMATED AVG GLUCOSE 143 mg/dL 08/14/2024 3:51 PM CDT [facility] 08/14/2024 8:20 AM CDT Mayank Valerio MD LABORATORY Final Result [facility] [address] [place] [address], * (ABNORMAL) COMPREHENSIVE METABOLIC PANEL (08/14/2024 8:20 AM CDT) GLUCOSE 127(H) 70 - 99 MG/DL 08/14/2024 8:51 AM CDT [facility] BUN 29(H) 7 - 18 MG/DL 08/14/2024 8:51 AM CDT [facility] CREATININE S/P/B 1.63(H) 0.50 - 1.20 MG/DL 08/14/2024 8:51 AM CDT [facility] SODIUM S/P/B 141 136 - 145 MMOL/L 08/14/2024 8:51 AM CDT [facility] POTASSIUM S/P/B 4.1 3.5 - 5.1 MMOL/L 08/14/2024 8:51 AM CDT [facility] CHLORIDE S/P/B 105 100 - 108 MMOL/L 08/14/2024 8:51 AM CDT [facility] CO2 28.5 21.0 - 32.0 MMOL/L 08/14/2024 8:51 AM CDT [facility] CALCIUM S/P/B 9.1 8.5 - 10.1 MG/DL 08/14/2024 8:51 AM CDT [facility] BILIRUBIN TOTAL S/P/B 0.6 0.2 - 1.2 MG/DL 08/14/2024 8:51 AM CDT [facility] Comment: THIS ASSAY IS NOT RECOMMENDED FOR PATIENTS UNDERGOING TREATMENT WITH ELTROMBOPAG DUE TO THE POTENTIAL FOR FALSELY ELEVATED RESULTS. TOTAL PROTEIN S/P/B 6.4 6.4 - 8.2 G/DL 08/14/2024 8:51 AM CDT [facility] ALBUMIN S/P/B 3.9 3.4 - 5.0 G/DL 08/14/2024 8:51 AM CDT [facility] AST 18 15 - 37 U/L 08/14/2024 8:51 AM CDT [facility] ALT 22 16 - 60 U/L 08/14/2024 8:51 AM CDT [facility] ALKALINE PHOSPHATASE S/P/B 108 50 - 136 U/L 08/14/2024 8:51 AM T [facility] ANION GAP 7.5 5.0 - 15.0 MMOL/L 08/14/2024 8:51 AM CDT [facility] BUN CREATININE RATIO 17.8 6 - 26 08/14/2024 8:51 AM CDT [facility] A/G RATIO 1.6 1.0 - 2.5 RATIO 08/14/2024 8:51 AM T [facility] GFR ESTIMATE 45(L) >90 ML/MIN/1.7 3 M2 08/14/2024 8:51 AM T [facility] Comment: NOTE: eGFR is not calculated for patients <18 years of age. This is an estimated GFR calculation using the new CKD EPI creatinine equation without race and so does not require a correction factor for race. This estimated GFR should not be used for calculating drug doses. 08/14/2024 8:20 AM CDT Mayank Valerio MD LABORATORY Final Result [facility] [place] [facility] [address] [place] [address], [place] * (ABNORMAL) LIPID PANEL (02/12/2024 8:35 AM CDT) CHOLESTEROL 118 <200 MG/DL 02/12/2024 3:12 PM CDT [facility] TRIGLYCERIDES 126 <150 MG/DL 02/12/2024 3:12 PM CDT [facility] HDL 31(L) >40.0 MG/DL 02/12/2024 3:12 PM CDT [facility] LDL (CALCULATED) 62 <100 MG/DL 02/12/20 3:12 PM CDT [facility] NON HDL CHOLESTEROL 87 <130 MG/DL 02/11 3:12 PM CDT [facility] CHOL/HDL RATIO 3.8 0.0 - 4.5 02/12/2024 3:12 PM CDT [facility] VLDL CALCULATION 25 5 - 55 MG/DL 02/12/2024 3:12 PM CDT [facility] LIPID INTERPRETATION 02/12/2024 3:12 PM CDT [facility] Comment: NIH CONCENSUS REPORT RECOMMENDATIONS: ADULT CHILD LOW RISK: CHOLESTEROL <200 <170 TRIGLYCERIDE <150 --- HDL >=60 --- LDL <100 <110 BORDERLINE: CHOLESTEROL 200-239 170-199 TRIGLYCERIDE 150-199 --- HDL 40-59 --- LDL 100-159 110-129 HIGH RISK: CHOLESTEROL >=240 >=200 TRIGLYCERIDE >=200 --- HDL <40 --- LDL >=160 >=130 02/12/2024 8:35 AM CDT us Josué Valerio SCIENT[facility] LINGUIST LABORATORY Final Resul t [facility] [address] [place] [address], * CT ABD+PEL WO CON (08/24/2019 8:04 PM CDT) Anatomical Region Laterality Modality Abdomen Computed Tomogra phy 08/24/2019 8:30 PM CDT Impressions 08/24/2019 8:45 PM CDT IMPRESSION: 1. New and diffuse lymph node abnormalities most concerning for lymphoma. 2. Nonspecific peripancreatic findings. 3. Right hydronephrosis and hydroureter. The distal ureters not well seen and findings could be due to distal stricture, obstruction, or reflux. 4. Mild left hydronephrosis and hydroureter is similar to the prior study. 5. Possible focal abnormality in the mid left kidney is not well seen without contrast. 6. Diverticulosis. 7. Cystectomy. A dose lowering technique was used for this procedure, which may include, but is not limited to, dose reduction technique, automated exposure control, iterative reconstruction, ALARA (As Low As Reasonably Achievable), or Image Gently techniques. Interpreted By: Kailash Da Silva MD, 08/24/2019 8:30 PM Narrative 08/24/2019 8:45 PM CDT EXAM: CT ABD+PEL WO CON DATE: 08/24/2019 COMPARISON: 03/02/2018 INDICATION: Hydronephrosis. TECHNIQUE: Noncontrast imaging FINDINGS: The lungs are clear. Normal noncontrast appearance of the liver, spleen, adrenal glands, and gall bladder. There are multiple abnormal lymph nodes present. There is confluent soft tissue fullness around the aorta and inferior vena cava. There is diffuse haziness within the central mesenteric fat which is a nonspecific finding. This can be seen as normal variation or associated with inflammation or infection. In this case, findings are most concerning for being associated with probable lymphoma. There are multiple peripancreatic soft tissue nodules. The largest measures about 2.7 cm and probably represents an enlarged lymph node. Allowing for the mesenteric fat changes, the peripancreatic fat also shows some areas of mild hazy density. This may be unrelated to the pancreas and could be correlated with lab values regarding possible acute pancreatitis. Focal laxity of the midline abdominal wall with rectus sheath diastases. Findings have mildly worsened. There is right-sided hydronephrosis and proximal hydroureter. The more distal aspects of the right ureter are not well seen. Findings could be due to reflux or nonvisualized obstruction associated with the ileal loop. Left lower quadrant ostomy is unchanged. There are mildly enlarged lymph nodes in the pelvic fat anterior to the iliacus muscles. There is a nonobstructing left kidney stone which is unchanged. This measures about 3 mm. Milder hydronephrosis and hydroureter when compared to the right side. The distal aspects of the left ureter are visualized and have a normal diameter. The ileal loop is not abnormally distended. There is a possible rounded mass in the left kidney shown on the coronal images. With no contrast, distinguishing between a potentially isodense cyst, poorly visualized mass, or region of, dromedary hump is uncertain. Size is about 3 cm. Partially visualized penile prosthesis components. Prostatectomy and cystectomy as previously. Rather advanced sigmoid diverticulosis. No findings for inflammation or obstruction. The appendix is not visualized. Moderate stool volume. Mild degenerative disc disease in the spine and mild hip osteoarthritis. Procedure Note Kailash Da Silva MD - 08/24/2019 EXAM: CT ABD+PEL WO CON DATE: 08/24/2019 COMPARISON: 03/02/2018 INDICATION: Hydronephrosis. TECHNIQUE: Noncontrast imaging FINDINGS: The lungs are clear. Normal noncontrast appearance of theliver, spleen, adrenal glands, and gall bladder. There are multiple abnormal lymph nodes present. There is confluent softtissue fullness around the aorta and inferior vena cava. There is diffusehaziness within the central mesenteric fat which is a nonspecific finding.This can be seen as normal variation or associated with inflammation orinfection. In this case, findings are most concerning for beingassociated with probable lymphoma. There are multiple peripancreatic soft tissue nodules. The largestmeasures about 2.7 cm and probably represents an enlarged lymph node.Allowing for the mesenteric fat changes, the peripancreatic fat also showssome areas of mild hazy density. This may be unrelated to the pancreasand could be correlated with lab values regarding possible acutepancreatitis. Focal laxity of the midline abdominal wall with rectus sheath diastases.Findings have mildly worsened. There is right-sided hydronephrosis and proximal hydroureter. The moredistal aspects of the right ureter are not well seen. Findings could bedue to reflux or nonvisualized obstruction associated with the ileal loop.Left lower quadrant ostomy is unchanged. There are mildly enlarged lymphnodes in the pelvic fat anterior to the iliacus muscles. There is a nonobstructing left kidney stone which is unchanged. Thismeasures about 3 mm. Milder hydronephrosis and hydroureter when comparedto the right side. The distal aspects of the left ureter are visualizedand have a normal diameter. The ileal loop is not abnormally distended. There is a possible rounded mass in the left kidney shown on the coronalimages. With no contrast, distinguishing between a potentially isodensecyst, poorly visualized mass, or region of, dromedary hump is uncertain.Size is about 3 cm. Partially visualized penile prosthesis components. Prostatectomy andcystectomy as previously. Rather advanced sigmoid diverticulosis. Nofindings for inflammation or obstruction. The appendix is not visualized.Moderate stool volume. Mild degenerative disc disease in the spine andmild hip osteoarthritis. IMPRESSION: 1. New and diffuse lymph node abnormalities most concerning forlymphoma. 2. Nonspecific peripancreatic findings. 3. Right hydronephrosis and hydroureter. The distal ureters not wellseen and findings could be due to distal stricture, obstruction, orreflux. 4. Mild left hydronephrosis and hydroureter is similar to the priorstudy. 5. Possible focal abnormality in the mid left kidney is not well seenwithout contrast. 6. Diverticulosis. 7. Cystectomy. A dose lowering technique was used for this procedure, which may include,but is not limited to, dose reduction technique, automated exposurecontrol, iterative reconstruction, ALARA (As Low As ReasonablyAchievable), or Image Gently techniques. Interpreted By: Kailash Da Silva MD, 08/24/2019 8:30 PM Roberto Leblanc MD CT Final Result * Colonoscopy ( [facility]) Narrative [facility] TO EPIC CONVERSION - [facility] Documented hx of procedure Procedure Note Alberto Sandoval, - 03/09/2018 Documented hx of procedure us Generic Conversion Md [facility] PROCEDURE ORDERABLES Final Result [facility] TO EP[facility] CONVERSION from Last 3 Months or Most Recently Relevant to Health Maintenance Insurance MEDICARE [facility] Care Teams Mental Measurements Teacher Relationship Specialty Start [place] [id number] [place] [id number] PCP - General INTERNAL MEDICINE 03/06/18
--- OUTSIDE RECORDS SUMMARY | 2024-09-16 12:23 | XMS_ITS | Clinical Summary ---
Author Organization [facility] Address [address] [place] [address] Care Team Providers Care Midwife Practitioner Name Role Phone Mayank Valerio MD Primary Care Provider +1- [phone] Allergies Active Allergy Reactions Criticality Noted Date Comments Iodine Hives High 10/06/2019 Levofloxacin Other (See Comments) ,Shortness of Breath/Wheezing High 09/10/2019 Metformin Diarrhea Low 08/24/2021 Medications amLODIPine-vals bria 10-320 mg Tablet Take by mouth. Active atorvastatin (LIPITOR) 40 mg tablet Take 40 mg by mouth daily with supper. Active allopurinoL (ZYLOPRIM) 100 mg tablet Take 100 mg by mouth daily. Active traZODone (DESYREL) 50 mg tablet Take 50 mg by mouth daily at bedtime. Active ondansetron (Zofran ODT) 4 mg Tablet, Rapid Dissolve Take 1 Tablet (4 mg) by mouth every 8 hours as needed for Nausea/Emesis . Dissolve tablet on top of tongue, then swallow with saliva. 30 Tablet 1 11/18/2019 Active aspirin (OSCAR CHEWABLE) 81 mg Tablet, Chewable Take 81 mg by mouth. Active sulfamethoxazol e-trimethoprim (BACTRIM) 400-80 mg tablet Take 1 Tablet by mouth 2 times daily. Active metFORMIN (GLUCOPHAGE XR) 500 mg Extended Release 24 hour tablet Take 500 mg by mouth daily with breakfast. 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 12/16/2019 History of bladder cancer 10/06/2019 Resolved Problems Problem Noted Date Diagnosed Date Resolved Date Lymphadenopathy 10/06/2019 12/16/2019 Encounters Date Type Department Care Team Description 06/24/2024 External Device Data STL ABSTRACTION Provider, Abstract 06/23/2024 External Device Data STL ABSTRACTION Provider, Abstract from Last 3 Months Family History Medical History Relation Name Comments Cancer Brother 1 Cancer Father Cancer Mother Cancer Sister 1 Relation Name Status Comments Brother 1 Alive Brother 2 Brother 3 Alive Father Mother Sister 1 Alive Sister 2 Alive Sister 3 Alive Social History Tobacco Use Types Packs/Day Years Used Date Smoking Tobacco: Former Cigarettes 1 40 0 09/1979 - 09/2019 Smokeless Tobacco: Never Tobacco Cessation:Counseling Given: Not Answered Alcohol Use Standard Drinks/Week Comments Yes 0 (1 standard drink = 0.6 oz pur e alcohol) Sex and Gender Information Value Date Recorded Sex Assigned at Not on file Legal Sex Male 2:15 PM CDT Gender Identity Not on file Sexual Orientation Not on file Last Filed Vital Signs Vital Sign Reading Time Taken Comments Blood Pressure 117/76 03/19/2024 11:51 AM SOLE CEMENTER Pulse 71 03/19/2024 11:51 AM SOLE CEMENTER Temperature 36.7 C (98 F) 03/19/2024 11:51 AM SOLE CEMENTER Respiratory Rate 16 03/19/2024 11:51 AM SOLE CEMENTER Oxygen Saturation 97% 03/19/2024 11:51 AM SOLE CEMENTER Inhaled Oxygen Concentration - - Weight 98.4 kg (217 lb) 03/19/2024 11:51 AM SOLE CEMENTER Height 172.7 cm (5' 8 ) 02/21/2022 9:28 AM CDT Body Mass Index 32.99 02/21/2022 9:28 AM CDT Plan of Treatment Upcoming Encounters Date Type Department Care Team (Late st Contact Info) Description 09/16/2024 1:15 PM CDT Office Visit [facility] Oncology and Hematology - Tod [address] [facility] [address] [place] [address] Lang Torres MD [address] [facility] [address] [place] [address] Health Maintenance Due Date Last Done Comments DIABETES ANNUAL FOOT EXAM 01/17/1972 DIABETES ANNUAL RETINAL EXAM 01/17/1972 DIABETES MICROALBUMIN ANNUAL SCREEN 01/17/1972 LDL CHOLESTEROL ANNUAL 01/17/1972 FIT-DNA Q 3 years 1999 FIT/FOBT Q 1 year 1999 Flex Sig/CT Colonography Q 5 years 1999 Lung Cancer Screening 01/17/2004 RSV VACCINE (60+ or ) (1 - Risk 60-74 years 1-dose series) 2014 COVID-19 Vaccine (12 - Mixed Product risk season) 2024 02/24/2024, 06/20/2023, 11/28/2022, Additional history exists DIABETES HBA1C Q 6 MONTHS 08/25/20242023, 02/12/2024, 04/30/2023, Additional history exists COLORECTAL SCREENING 11/22/2032 11/22/2022, 05/06/18 00 Colorectal Cancer Screening 11/22/2032 DTAP/TDAP/TD VACCINES (4 - T d or Tdap) 12/06/2033 12/07/2023, 11/09/2021, 09/28/2021 PNEUMOCOCCAL VACCINE 50+ YEARS Completed 1 , 02/11/2019, 01/03/2016 Abdominal Aortic Aneurysm (A AA) Screening Completed 09/18/2021, 09/05/2020, 08/24/2019 ZOSTER VACCINE Completed 05/30/2022, 03/07, 04/06/2020 INFLUENZA VACCINE Completed 02/24/2024, , 04/19/2022, Additional history exists Procedures Procedure Name Priority Date/Time Associated Diagnosis Comments HEMOGLOBIN A1C Routine 01/19/2021 CT ABDOMEN PELVIS WO CONTRAST Routine 09/05/2020 Non-Hodgkin lymphoma of intra-abdominal lymph nodes, unspecified non-Hodgkin lymphoma type (CMS/HCC) from Last 3 Months or Most Recently Relevant to Health Maintenance Results * HEMOGLOBIN A1C (01/19/2021) Blood us Abstract Provider CHEMISTRY ORDERABLES Final Res ult * CT ABDOMEN PELVIS WO CONTRAST (09/05/2020) Anatomical Region Laterality Modality Abdomen Computed Tomogra phy us Lang Torres MD CT ORDERABLES Final Result from Last 3 Months or Most Recently Relevant to Health Maintenance Insurance MEDICARE PART A AND B Care Teams Midwife Practitioner Relationship Specialty Start Date End Date Mayank Valerio MD PCP - General Internal Medicine 02/10/20
[2024-09-16 13:18] LABS: Basophils Absolute Auto 0.1 K/mm3 (0.0-0.1); Basophils Percent Auto 0.7 % (0.2-1.2); Eosinophils Absolute Auto 0.1 K/mm3 (0-0.3); Eosinophils Percent Auto 1.1 % (0-4.4); Hematocrit 45.1 % (42.0-52.0); Immature Granulocyte Absolute 0.07 K/mm3 (0.00-0.031); Immature Granulocyte Percent A 0.9 % (0-0.5); Lymphocytes Percent Auto 23.9 % (18.3-44.2); Mean Corpuscular HGB Conc 33.3 g/dl (32-36); Mean Corpuscular Hemoglobin 31.5 pg (26-34); Mean Corpuscular Volume 94.7 fl (80-100); Mean Platelet Volume 9.1 fl (7.4-10.4); Monocytes Absolute Auto 0.8 K/mm3 (0.1-0.6); Monocytes Percent Auto 11.1 % (2.6-8.5); Neutrophils Absolute Auto 4.7 K/mm3 (1.3-6.7); Neutrophils Percent Auto 62.3 % (45.5-73.1); Platelet Count Result 152 k/mm3 (150-375); Red Blood Count 4.76 M/mm3 (4.6-6.20); Red Cell Distribution Width 13.3 % (11.5-14.5); White Blood Count 7.5 K/mm3 (4.5-10.0)
[2024-09-16 13:22] LABS: Blood Urea Nitrogen 28 mg/dL (8-26); Carbon Dioxide 24 mmol/L (22-30); Chloride 104 mmol/L (98-109); Estimated Glomerular Filt Rate 37; Glucose 100 mg/dL (70-105); Ionized Calcium (POC) 1.21 mmol/L (1.11-1.31); Potassium 4.7 mmol/L (3.5-4.9); Sodium 140 mmol/L (138-146)
[2024-09-16 13:55] LABS: Alanine Aminotransferase 17 U/L (6-50); Albumin Level 4.5 g/dL (3.5-5.1); Alkaline Phosphatase 104 U/L (38-126); Anion Gap 10 mmol/L (4-12); Aspartate Amino Transferase 38 U/L (17-59); Bilirubin,Total 0.6 mg/dL (0.2-1.3); Blood Urea Nitrogen 29 mg/dL (9-20); Calcium 9.2 mg/dL (8.4-10.2); Carbon Dioxide 26 mmol/L (22-30); Chloride 105 mmol/L (98-107); Estimated Glomerular Filt Rate 44; Glucose 99 mg/dL (65-110); Potassium 4.7 mmol/L (3.4-5.0); Sodium 141 mmol/L (137-145)
[2024-09-16 14:30] LABS: Lactate Dehydrogenase < 200 U/L (120-246)
== END 2024-09-16 12:20 | disposition home or self-care (01) ==
LOC: ANHLAB 12:20
PROVIDERS: PCP Pediatrics; Visit Provider Internal Medicine Hematology & Oncology
DX: C85.93 Non-Hodgkin lymphoma, unspecified, intra-abdominal lymph nodes (principal)
CPT/HCPCS: 36415; 80047; 80053; 83615; 85025

== ENCOUNTER 2025-03-08 10:34 | Outpatient (CLI) | payer MEDICARE, SELFPAY ==
--- NOTE | ~2025-03-08 | CT_ITS ---
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 Dose lowering technique and dose optimization was utilized. FINDINGS: The exam is suboptimal because of the lack of IV contrast. Inferior thorax: No significant abnormality is seen. Liver: Normal. Gallbladder: The gallbladder is present. There are no radiopaque gallstones. Pancreas: Within normal limits. Spleen: Normal in size and appearance. Adrenal glands: There are no masses seen. Kidneys: There is mild bilateral hydronephrosis again seen. No urinary tract stones are seen. There are tiny low-density structures in both kidneys which are likely small cysts. There are also some denser which are probably hyperdense cyst. The right kidney is atrophic. GI tract: There is no evidence of bowel obstruction. There is marked diverticulosis of the sigmoid, and there is a lesser degree in the descending colon. Major vessels: The major vessels are normal in caliber. Sex specific pelvic organs: The prostate is surgically absent. There is a penile reservoir, and there are penile prostheses. Bladder: It is surgically absent. 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 This is unchanged. Bones: Multiple minimal vertebral wedging deformities about the thoracolumbar junction. There is appears to be ankylosis of the spinous processes of T11 and T12. Again seen is infiltrative change in the fat about the IVC and aorta in the retroperitoneum. This is probably posttreatment change. IMPRESSION: No significant interval change is seen. Reviewed, dictated and finalized at location A. CTICIDE SUPERVISOR
--- OUTSIDE RECORDS SUMMARY | 2025-03-08 11:41 | XMS_ITS | Clinical Summary ---
Author Organization [facility] Address [address] [place] [address] Care Team Providers Care House Painter Name Role Phone Unavailable Primary Care Provider Unavailabl e Source Comments [facility],non-owned Affiliates and Associated Physician Practices is amultiple site organization consisting of ambulatory clinics and hospital sitesin [place], [place], [place] and [place]. This disclosure is being madepursuant to the Care Everywhere program and may not contain all information available regarding this patient. 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
--- OUTSIDE RECORDS SUMMARY | 2025-03-08 11:41 | XMS_ITS | Encounter Summary ---
Author Organization [facility] Address [address] [place] [address] Care Team Providers Care Automotive Engineering Technician Name Role Phone Mayank Valerio MD Primary Care Provider +1- [phone] Encounter Details Date Type Department Care Team (Late Contact Info) Description 03/16/2020 Chart Note [facility] Radiation Therapy [address] [place] [address] [place] [address] [place] [address] Social History Tobacco Use Types [...] COVID-19? No / Unsure 03/09/2020 8:48 AM GELATIN MAKER UTILITY documented as of this encounter Plan of Treatment Upcoming Encounters Date Type Department Care Team (Late Contact Info) Description 03/15/2025 2:30 PM GELATIN MAKER UTILITY Office Visit [facility] Oncology and Hematology - [place] [address] [facility] [facility] [facility] [address] [place] [address] Lang Torres MD [address] [facility] [address] [place] [address] documented as of this encounter Visit Diagnoses Not on filedocumented in this encounter Care Teams Automotive Engineering Technician Relationship Specialty Start Date End Date Mayank Valerio MD PCP - General Internal Medicine 02/10/20 documented as of this encounter
--- OUTSIDE RECORDS SUMMARY | 2025-03-08 11:41 | XMS_ITS | Encounter Summary ---
Author Organization [facility] Address [address] [facility] [place] [address] Care Team Providers Care Transportation Job Titles Name Role Phone Unavailable Primary Care Provider Unavailabl e Encounter Details Date Type Department Care Team (Late st Contact Info) Description 10/16/2019 Lab Requisition [facility] Care Pathology Lab [address] [place] [address] Gt Langford MD [address] [facility] [address] [place] [address] Illness, unspecified Social History Tobacco Use Types Packs/Day Years Used Date Smoking Tobacco: Never Assessed Sex and Gender Information Value Date Recorded Sex Assigned at Not on file 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 Gender Identity Not on file Sexual Orientation Not on file documented as of this encounter Plan of Treatment Not on file documented as of this encounter Procedures Procedure Name Priority Date/Time Associated Diagnosis Comments PATHOLOGY TISSUE Routine 10/14/2019 2:07 PM CDT Illness, unspecified documented in this encounter Results * PATHOLOGY TISSUE (10/14/2019 2:07 PM CDT) Case Report Surgical Pathology Report Case: [id number] Authorizing Provider: Gt Langford MD Collected: 10/14/2019 02:07 PM Ordering Location: [facility] Care Pathology Lab Received: 10/16/2019 10:15 AM Pathologist: Yara Phillips MD Specimen: Lymph Node Biopsy, OSC: [id number] 10/16/2019 5:26 PM CDT [facility] Final Diagnosis Lymph node, left supraclavicular, needle core biopsy: - Follicular lymphoma, as sampled. - See description. 10/16/2019 5:26 PM [facility] PATH[facility] at 1726 CDT Microscopic Description and Comment Review of the [...] are performed on block A1 in the [facility] Department of Pathology, with appropriately reactive controls, to further define the immunoarchitecture and phenotype of the cells and demonstrate the following: CD20, CD10, BCL-2, and BCL-6: positive in the neoplastic cells. CD3 and CD5: negative in neoplastic cells. CD21 highlights multiple follicular dendritic cell meshworks. Per outside report, concurrent lymph node flow cytometry (, [id number]) detects an abnormal/monotypic [id number] B-cell population (52% of sample). The cells [...] findings is required. KR/MM 10/16/2019 5:26 PM [facility] Clinical History Lymphadenopathy. 10/16/2019 5:26 PM [facility] Materials Received Received are 2 slides and 1 block (A1) labeled [id number] along with a copy of the outside pathology report. [place] [address]. All original materials are returned to the referring institution, along with a copy of our final report. 10/16/2019 5:26 PM [facility] PATH[facility] Disclaimer The performance characteristics of all immunohistochemical and indirect immunofluorescence stains (if any) cited in this report were determined by the Histopathology Laboratory of [facility]. Some of these tests were developed by [...] attending (teaching) pathologist. 10/16/2019 5:26 PM CDT [facility] PATHOLOGY LAB Embedded Images 10/16/2019 5:26 PM CDT [facility] PATHOLOGY LAB Pathology/Cytolo gy BIOPSY OF LYMPH NODE / Unknown 10/14/2019 2:07 PM CDT 10/16/2019 10:15 AM CDT Gt Langford MD LAB - PATHOLOGY/CYTOLOGY ORDER BRITTANY Final Result [facility] PATHOLOGY LAB [address] [place] [address], [facility] [phone] documented in this encounter Visit Diagnoses Diagnosis Illness, unspecified documented in this encounter
--- OUTSIDE RECORDS SUMMARY | 2025-03-08 11:41 | XMS_ITS | Clinical Summary ---
Author Organization [facility] Address [address] [place] [address] Care Team Providers Care Marketing Planner Name Role Phone Mayank Valerio MD Primary Care Provider +1- [phone] Allergies Active Allergy Reactions Criticality Noted Date [...] Encounters Date Type Department Care Team Description 02/16/2025 External Device Data STL ABSTRACTION Provider, Abstract 01/19/2025 External Device Data STL ABSTRACTION Provider, Abstract 01/05/2025 External Device Data STL ABSTRACTION Provider, Abstract 01/05/2025 External Device Data STL ABSTRACTION Provider, Abstract 12/22/2024 External Device Data STL ABSTRACTION Provider, Abstract 12/09/2024 External Device Data STL ABSTRACTION Provider, Abstract 12/08/2024 External Device Data STL ABSTRACTION Provider, Abstract [...] Sign Reading Time Taken Comments Blood Pressure 130/81 09/16/2024 1:24 PM CDT Pulse 65 09/16/2024 1:21 PM CDT Temperature 36.6 C (97.8 F) 09/16/2024 1:21 PM CDT Respiratory Rate 15 09/16/2024 1:21 PM CDT Oxygen Saturation 97% 09/16/2024 1:21 PM CDT Inhaled Oxygen Concentration - - Weight 95.1 kg (209 lb 9.6 oz) 09/16/2024 1:21 P M CDT Height 172.7 cm (5' 8) 02/21/2022 9:28 AM CDT Body Mass Index 31.87 02/21/2022 9:28 AM CDT Plan of Treatment Upcoming Encounters Date Type Department Care Team (Late st Contact Info) Description 03/15/2025 2:30 PM NOZZLE TENDER Office Visit [facility] Oncology and Hematology - [place] [address] [facility] [address] [place] [address] Lang Torres MD [address] [facility] [address] [place] [address] Health Maintenance Due Date Last Done Comments DIABETES ANNUAL FOOT EXAM 01/17/1972 DIABETES ANNUAL RETINAL EXAM 01/17/1972 DIABETES MICROALBUMIN ANNUAL SCREEN 01/17/1972 LDL CHOLESTEROL ANNUAL 01/17/1972 FIT-DNA Q 3 years 1999 FIT/FOBT Q 1 year 1999 Flex Sig/CT Colonography Q 5 years 1999 Lung Cancer Screening 01/17/2004 RSV VACCINE (60+ or ) (1 - Risk 50-74 years 1-dose series) 01/17/2004 INFLUENZA VACCINE (#1) 2024 , 01/22/2023, 04/19/2022, Additional history exists COVID-19 Vaccine ( season) 2025 02/24/2024, 06/20/2023, 11/28/2022, Additional history exists DIABETES HBA1C Q 6 MONTHS 02/13/20252024, 02/25/2024, 02/12/2024, Additional history exists COLORECTAL SCREENING 11/22/2032 11/22/2022, 05/06/18 00 Colorectal Cancer Screening 11/22/2032 DTAP/TDAP/TD VACCINES (4 - T d or Tdap) 12/06/2033 12/07/2023, 11/09/2021, 09/28/2021 PNEUMOCOCCAL VACCINE 50+ YEARS Completed 1 , 02/11/2019, 01/03/2016 Abdominal Aortic Aneurysm (A AA) Screening Completed 09/18/2021, 09/05/2020, 08/24/2019 ZOSTER VACCINE Completed 05/30/2022, 03/07, 04/06/2020 Procedures Procedure Name Priority Date/Time Associated Diagnosis [...] Maintenance Insurance MEDICARE PART A AND B [employer] SUPP * Guarantor: JOSUÉ CROCKER Account Type Relation to Patient Date of Phone Billing Address Personal/Family 1962 not correct address [address] [employer] Care Teams Marketing Planner Relationship Specialty Start Date End Date Mayank Valerio MD PCP - General Internal Medicine 02/10/20
== END 2025-03-08 10:35 | disposition home or self-care (01) ==
PROVIDERS: PCP Pediatrics; Visit Provider Internal Medicine Hematology & Oncology
DX: C85.93 Non-Hodgkin lymphoma, unspecified, intra-abdominal lymph nodes (principal)
CPT/HCPCS: 74176

== ENCOUNTER 2025-03-15 14:02 | Outpatient (CLI) | payer MEDICARE, SELFPAY ==
--- OUTSIDE RECORDS SUMMARY | 2025-03-15 14:13 | XMS_ITS | Encounter Summary ---
Author Organization [facility] Address [address] [place] [address] Care Team Providers Care Grain Shipper Name Role Phone Mayank Valerio MD Primary Care Provide r Reason for Visit * Reason Comments CT (SCAN) Encounter Details Date Type Department Care Team (Latest Contact Info) Description 03/08/2025 Scan HEALTH INFO SRVCS Scanned, Doc Med Group CT (SCAN) Social History Tobacco Use Types Packs/Day Years Used Date Smoking Tobacco: Former Cigarettes Q uit: 09/2019 Passive Smoke Exposure: Past Smokeless Tobacco: Never Alcohol Use Standard Drinks/Week Comments Yes 0 (1 standard drink = 0.6 oz pur e alcohol) OCCASIONAL AUDIT-C Answer Date Recorded Frequency of Alcohol Consumption Monthly or less 03/13/2018 Average Number of Drinks Not on file 018 Frequency of Binge Drinking Not on file 12/2017 PHQ-2 Answer Date Recorded Patient Health Questionnaire-2 Score 0 02/22/2025 Sex and Gender Information Value Date Recorded Sex Assigned at Male 02/15/2022 12:59 PM CDT Legal Sex Male 7:54 PM CDT Gender Identity Male 02/15/2022 12:59 PM CDT Sexual Orientation Straight 02/15/2022 12 :59 PM CDT documented as of this encounter Plan of Treatment Upcoming Encounters Date Type Department Care Team ( Contact Info) Description 08/23/2025 1:00 PM CDT Office Visit [facility] [address] [place] [id number] [place] [address] [place] [address] documented as of this encounter Procedures Procedure Name Priority Date/Time Associated Diagnosis Comments CT GENERIC 03/08/2025 documented in this encounter Results * CT GENERIC (03/08/2025) Anatomical Region Laterality Modality Other 03/08/2025 us Doc [facility] Scanned SCANNING Final Resu lt documented in this encounter Visit Diagnoses Not on filedocumented in this encounter Additional Health Concerns Assessment Noted Time PHQ-9 Depression Total Score: 0 02/15/20 21 9:01 AM CDT documented as of this encounter Care Teams Grain Shipper Relationship Specialty [place] [address] [place] [address] PCP - General INTERNAL MEDICINE 03/06/18 documented as of this encounter
--- OUTSIDE RECORDS SUMMARY | 2025-03-15 14:13 | XMS_ITS | Encounter Summary ---
Author Organization [facility] Address [address] [place] [address] Care Team Providers Care Street Superintendent Name Role Phone Mayank Valerio MD Primary Care Provider +1- [phone] Encounter Details Date Type Department Care Team (Late Contact Info) Description 03/16/2020 Chart Note [facility] Radiation Therapy [address] [place] [address] [place] [address] [place] [address] Social History Tobacco Use Types [...] COVID-19? No / Unsure 03/09/2020 8:48 AM INFORMATION MANAGEMENT OFFICER documented as of this encounter Plan of Treatment Upcoming Encounters Date Type Department Care Team (Late Contact Info) Description 03/15/2025 2:30 PM INFORMATION MANAGEMENT OFFICER Office Visit [facility] Oncology and Hematology - [place] [address] [facility] [address] [place] [address] Lang Torres MD [address] [facility] [address] [place] [address] documented as of this encounter Visit Diagnoses Not on filedocumented in this encounter Care Teams Street Superintendent Relationship Specialty Start Date End Date Mayank Valerio MD PCP - General Internal Medicine 02/10/20 documented as of this encounter
--- OUTSIDE RECORDS SUMMARY | 2025-03-15 14:13 | XMS_ITS | Encounter Summary ---
Author Organization [facility] Address [address] [place] [address] Care Team Providers Care Ham Marker Name Role Phone Mayank Valerio MD Primary Care Provide r Reason for Visit * Reason Onset Date Comments Lab Results 02/08/2025 Encounter Details Date Type Department Care Team (Late st Contact Info) Description 02/08/2025 Results Follow-Up [facility] [address] [place] [address] [place] [address] [place] [address] HEMOGLOBIN, GLYCOSYLATED, CBC W/DIFF AUTOMATED, COMPREHENSIVE METABOLIC PANEL, Additional followed-up results: 3 Social History Tobacco Use Types Packs/Day Years [...] PM CDT documented as of this encounter Progress Notes * Tabatha Woods RN - 02/08/2025 10:13 AM CDT Pt denies any urinary symptoms . 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 UA faxed to Dr Wong per pts request . Pt will contact Dr Wong to see if he wants to do anything documented in this encounter Plan of Treatment Upcoming Encounters Date Type Department Care Team (Late st Contact Info) Description 08/23/2025 1:00 PM CDT Office Visit [facility] [address] [place] [address] [place] [address] [place] [address] documented as of this encounter Visit Diagnoses Not on filedocumented in this encounter Additional Health Concerns Assessment Noted Time PHQ-9 Depression Total Score: 0 02/15/20 21 9:01 AM CDT documented as of this encounter Care Teams Ham Marker Relationship Specialty Start [place] [address] [place] [address] PCP - General INTERNAL MEDICINE 03/06/18 documented as of this encounter
--- OUTSIDE RECORDS SUMMARY | 2025-03-15 14:13 | XMS_ITS | Clinical Summary ---
Author Organization [facility] Address [address] [place] [id number] Care Team Providers Care Riveter Name Role Phone Mayank Valerio MD Primary Care Provide r Allergies Active Allergy Reactions Criticality Noted Date Comments Gadobenate Itching 08/01/2023 Iodine Hives Iohexol Itching 08/01/2023 Levofloxacin Other (see comment) 08/01/2023 Pain Levofloxacin Other (see comment), Shortness of Breath High 09/10/2019 Metformin Diarrhea Low 08/24/2021 Medications aspirin 81 MG chewable tablet Chew 1 tablet (81 mg total) by mouth as needed. Active hydrocortisone (HYTONE) 2.5 % ointmentIndication s:External hemorrhoids Apply topically 2 (two) times daily. 29 g 3 5 Active traZODone (DESYREL) 50 MG tabletIndications: Insomnia, unspecified type TAKE 1 TABLET BY MOUTH ONCE DAILY AT BEDTIME 90 tablet 2 5 Active allopurinol (ZYLOPRIM) 100 MG tabletIndications: Gout, unspecified cause, unspecified chronicity, unspecified site Take 1 tablet by mouth once daily 90 tablet 2 5 Active atorvastatin (LIPITOR) 40 MG tabletIndications: Mixed hyperlipidemia Take 1 tablet by mouth once daily 90 tablet 3 5 Active valsartan (DIOVAN) 160 MG tabletIndications: Essential hypertension, benign Take 1 tablet by mouth once daily 90 tablet 2 5 Active metFORMIN ER (GLUCOPHAGE-XR) 500 MG 24 hr tabletIndications: Type 2 diabetes mellitus with stage 3a chronic kidney disease, without long-term current use of insulin ([facility]/HCC HHS/HCC) Take 1 tablet by mouth once daily with breakfast 90 tablet 1 5 Active empagliflozin (JARDIANCE) 10 MG tabletIndications: Type 2 diabetes mellitus with stage 3a chronic kidney disease, without long-term current use of insulin ([facility]) Take 1 tablet (10 mg total) by mouth daily. 90 tablet 2 5 Active Active Problems Problem Noted Date Diagnosed Date Malignant neoplasm of urinary bladder 02/23/2025 Parastomal hernia 02/23/2025 External hemorrhoids 08/27/2024 Stage 3a chronic kidney disease 02/22/2022 Colonoscopy refused 02/22/2022 Type 2 diabetes mellitus wit h stage 3a chronic kidney disease 02/15/2022 Restless leg syndrome 09/20/2020 Follicular lymphoma grade II I of intra-abdominal lymph nodes 12/16/2019 Cigarette smoker 09/23/2018 Hyperplastic colon polyp 09/23/2018 Diverticulosis 09/23/2018 History of primary bladder cancer 03/14/2018 Essential hypertension, benign 03/14/2018 Recurrent pyelonephritis 12/24/2014 Overview (09/18/2018): Pyelonephritis, unspecified Insomnia 08/25/2012 Overview (09/18/2018): Insomnia, unspecified Mixed hyperlipidemia 08/25/2012 Overview (09/18/2018): Mixed hyperlipidemia Hx of total cystectomy 03/06/1999 Overview (09/23/2018): Radical cystectomy done for bladder cancer Resolved Problems Problem Noted Date Diagnosed Date Resolved Date Left kidney mass 02/23/2025 02/23/2025 History of transitional cell carcinoma of kidney 08/20/2024 08/20/2024 Skin tag 03/27/2021 02/27/2024 Type 2 diabetes mellitus wit hout complication, without long-term current use of insulin 09/20/2020 02/15/2022 History of bladder cancer 10/06/2019 Chronic kidney disease (CKD) stage G1/A1, glomerular filtration rate (GFR) equal to or greater than 90 mL/min/1.73 square meter and albuminuria creatinine ratio less than 30 mg/g 03/14/2018 02/15/2022 Encounter for preventive health examination 09/22/2013 01/15/2020 Encounters Date Type Department Care Team Description 03/08/2025 Scan [facility] INFO SRVCS Scanned, Doc [facility] CT (SCAN) 02/22/2025 1:00 PM CDT Office Visit [facility] [id number] [place] [address] Mayank Valerio MD Follow Up (6 month ); Lab Results (Lab review) 02/22/2025 Travel 02/08/2025 Results Follow-Up [facility] [address] [place] [address] Mayank Valerio MD HEMOGLOBIN, GLYCOSYLATED, CBC W/DIFF AUTOMATED, COMPREHENSIVE METABOLIC PANEL, Additional followed-up results: 3 02/05/2025 8:58 AM CDT - 02/05/2025 11:59 PM CDT Hospital Encounter [facility] [address] [place] [address] Mayank Valerio MD Discharge Disposition: Home or Self Care (Routine Discharge) 02/05/2025 Travel from Last 3 Months Immunizations Immunization [...] Sign Reading Time Taken Comments Blood Pressure 138/78 02/22/2025 1:01 PM CDT Pulse 75 02/22/2025 1:01 PM CDT Temperature 36.9 C (98.4 F) 02/22/2025 1:01 PM CDT Respiratory Rate 21 02/22/2025 1:01 PM CDT Oxygen Saturation 98% 02/22/2025 1:01 PM CDT Inhaled Oxygen Concentration - - Weight 98.1 kg (216 lb 3.2 oz) 02/22/2025 1:01 P M CDT Height 172.7 cm (5' 8) 02/22/2025 1:01 PM CDT Body Mass Index 32.87 02/22/2025 1:01 PM CDT Plan of Treatment Upcoming Encounters Date Type Department Care Team (Late st Contact Info) Description 08/23/2025 1:00 PM CDT [facility] Visit [facility] [id number] [phone] [place] [address] [place] [address] Health Maintenance Due Date Last Done Comments Colorectal Cancer Screening Colonoscopy (10 Years) 1955 Diabetes: Retinopathy Eye Exam 01/17/1972 Hepatitis C 01/17/1972 Pneumococcal Vaccine: 50+ Years (1 of 2 - PCV) 1973 Zoster Vaccines (1 of 2) 01/17/2004 RSV Immunization or 60+ Years (1 - Risk 60-74 years 1-dose series) 2014 Annual Medicare Wellness Visit 2019 COVID-19 Vaccine ( season) 2025 04/04/2021, 07/09/2020, 06/11/2020 Influenza Adult (#1) 2025 04/19/2022, 04/04/2021, 03/01/2020, Additional history exists Hemoglobin A1C 08/06/2025 02/05/2025, 08/04, 02/12/2024, Additional history exists Kidney Health Evaluation 02/05/2026 02/05/2025 Lipid Panel 02/05/2026 02/05/2025, 01/2024, 01/23/2022, Additional history exists DTaP, Tdap and Td Vaccines (2 - Td or Tdap) 12/06/2033 12/07/2023 AAA SCREENING Completed 01/21/2023, 01/04, 09/05/2020, Additional history exists PHQ-2 ([facility]) Completed 02/22/2025 Hepatitis A Vaccines Aged Out No long er eligible based on patient's age to complete this topic Meningococcal B Vaccine Aged Out No l onger eligible based on patient's age to complete this topic Meningococcal Vaccine Aged Out No tushar jodi eligible based on patient's age to complete this topic RSV Immunizations Under 20 Months Aged Out No longer eligible based on patient's age to complete this topic Procedures Procedure Name Priority Date/Time Associated Diagnosis Comments CT GENERIC 03/08/2025 HC MICROALBUMIN URINE QN Routine 02/05/2025 9:30 AM CDT Type 2 diabetes mellitus with stage 3a chronic kidney disease, without long-term current use of insulin ([facility]) HC URNLS DIP STICK/TABLET RGNT AUTO W/O MICRO Routine 02/05/2025 9:30 AM CDT Type 2 diabetes mellitus with stage 3a chronic kidney disease, without long-term current use of insulin ([facility] HHS/[facility]) HC LIPID PANEL Routine 02/05/2025 9:05 AM CDT Type 2 diabetes mellitus with stage 3a chronic kidney disease, without long-term current use of insulin ([facility]) HC COMPREHENSIVE METABOLIC PANEL Routine 02/05/2025 9:05 AM CDT Type 2 diabetes mellitus with stage 3a chronic kidney disease, without long-term current use of insulin ([facility] HHS/HCC) HC CBC AUTO W/AUTO DIFF Routine 02/05/2025 9:05 AM CDT Type 2 diabetes mellitus with stage 3a chronic kidney disease, without long-term current use of insulin ([facility]/HCC HHS/HCC) HC GLYCOSYLATED HGB Routine 02/05/2025 9 :05 AM CDT Type 2 diabetes mellitus with stage 3a chronic kidney disease, without long-term current use of insulin ([facility] HHS/HCC) CT ABD+PEL WO CON STAT 08/24/2019 8:0 4 PM CDT COLONOSCOPY Routine CULINARY ARTIST from Last 3 Months or Most Recently Relevant to Health Maintenance Results * CT GENERIC (03/08/2025) Anatomical Region Laterality Modality Other 03/08/2025 us Doc [facility] Scanned SCANNING Final Resu lt * (ABNORMAL) URINALYSIS (02/05/2025 9:30 AM CDT) SPECIMEN TYPE urine 02/05/2025 10:44 AM CDT [facility] COLOR (U) LIGHT YELLOW 02/05/2025 2:16 PM CDT [facility] TRANSPARENCY TURBID 02/05/2025 2:16 PM CDT [facility] SPECIFIC GRAVITY (U) 1.015 1.001 - 1.030 02/05/2025 2:16 PM CDT [facility] U PH 5.5 5.0 - 9.0 02/05/2025 2:16 PM CDT [facility] LEUKOCYTES (U) 500(A) NEGATIVE 02/05/2025 2:16 PM CDT [facility] NITRITES 2+(A) NEGATIVE 02/05/2025 2:16 PM CDT [facility] PROTEIN RANDOM (U) 20 <30 MG/DL 02/05/2025 2:16 PM CDT [facility] GLUCOSE (U) NORMAL NORMAL MG/DL 02/05/2025 2:16 PM CDT [facility] KETONES MG/DL (U) NEGATIVE NEGATIVE MG/DL 02/05/2025 2:16 PM CDT [facility] UROBILINOGEN NORMAL NORMAL MG/DL 02/05/2025 2:16 PM CDT [facility] BILIRUBIN (U) NEGATIVE NEGATIVE MG/DL 02/05/2025 2:16 PM CDT [facility] BLOOD (U) TRACE(A) NEGATIVE 02/05/2025 2:16 PM CDT [facility] WBC/HPF >100(H) <6 /HPF 02/05/2025 2:16 PM CDT [facility] RBC/HPF 11(H) <6 /HPF 02/05/2025 2:16 PM CDT [facility] BACTERIA (U) RARE(A) NONE /HPF 02/05/2025 2:16 PM CDT [facility] SQUAMOUS EPITHELIALS RARE /HPF 02/05/2025 2:16 PM CDT [facility] URINE SPECIMEN OBTAINED BY CLEAN CATCH PROCEDURE / Unknown 02/05/2025 9:30 AM CDT us Mayank Valerio MD URINE ORDERABLES Estelle espinoza Result [facility] [address] [place] [address], [place] [phone] [address], [place] * (ABNORMAL) ALBUMIN URINE RANDOM W/CREATININE (02/05/2025 9:30 AM CDT) CREATININE RANDOM (U) 99.0 39 - 259 MG/DL 02/05/2025 2:45 PM CDT [facility] MICROALBUMIN (U) 14.8(H) <2.0 mg/dL 02/05/2025 2:45 PM CDT [facility] ALBUMIN/CREAT RATIO 149.5(H) <30 MG/G 02/05/2025 2:45 PM CDT [facility] URINE SPECIMEN / Unknown 02/05/2025 9:30 AM CDT Mayank Valerio MD URINE ORDERABLES Estelle l Result [facility] [address] [place] [address], * (ABNORMAL) HEMOGLOBIN, GLYCOSYLATED (02/05/2025 9:05 AM CDT) HGB A1C 6.8(H) <5.7 % 02/05/2025 4:36 PM CDT [facility] Comment: ADA GUIDELINES 2010 5.7 TO 6.4% INCREASED RISK OF DIABETES > OR = 6.5% CONSISTENT WITH DIABETES ESTIMATED AVG GLUCOSE 148 mg/dL 02/05/2025 4:36 PM CDT [facility] 02/05/2025 9:05 AM CDT Mayank Valerio MD LABORATORY Final Result [facility] [address] [place] [address], * (ABNORMAL) COMPREHENSIVE METABOLIC PANEL (02/05/2025 9:05 AM CDT) [facility] GLUCOSE 128(H) 70 - 99 MG/DL 02/05/2025 9:28 AM CDT [facility] BUN 24(H) 7 - 18 MG/DL 02/05/2025 9:28 AM CDT [facility] CREATININE S/P/B 1.67(H) 0.50 - 1.20 MG/DL 02/05/2025 9:28 AM CDT [facility] SODIUM S/P/B 143 136 - 145 MMOL/L 02/05/2025 9:28 AM CDT [facility] POTASSIUM S/P/B 4.2 3.5 - 5.1 MMOL/L 02/05/2025 9:28 AM CDT [facility] CHLORIDE S/P/B 109(H) 100 - 108 MMOL/L 02/05/2025 9:28 AM CDT [facility] CO2 26.2 21.0 - 32.0 MMOL/L 02/05/2025 9:28 AM CDT [facility] CALCIUM S/P/B 9.2 8.5 - 10.1 MG/DL 02/05/2025 9:28 AM CDT [facility] BILIRUBIN TOTAL S/P/B 0.5 0.2 - 1.2 MG/DL 02/05/2025 9:28 AM CDT [facility] Comment: THIS ASSAY IS NOT RECOMMENDED FOR PATIENTS UNDERGOING TREATMENT WITH ELTROMBOPAG DUE TO THE POTENTIAL FOR FALSELY ELEVATED RESULTS. TOTAL PROTEIN S/P/B 6.7 6.4 - 8.2 G/DL 02/05/2025 9:28 AM CDT [facility] ALBUMIN S/P/B 3.7 3.4 - 5.0 G/DL 02/05/2025 9:28 AM CDT [facility] AST 17 15 - 37 U/L 02/05/2025 9:28 AM CDT [facility] ALT 17 16 - 60 U/L 02/05/2025 9:28 AM CDT [facility] ALKALINE PHOSPHATASE S/P/B 114 50 - 136 U/L 02/05/2025 9:28 AM CDT [facility] ANION GAP 7.8 5.0 - 15.0 MMOL/L 02/05/2025 9:28 AM CDT [facility] BUN CREATININE RATIO 14.4 6 - 26 02/05/2025 9:28 AM CDT [facility] A/G RATIO 1.2 1.0 - 2.5 RATIO 02/05/2025 9:28 AM CDT [facility] GFR ESTIMATE 43(L) >90 ML/MIN/1.7 3 M2 02/05/2025 9:28 AM CDT [facility] Comment: NOTE: eGFR is not calculated for patients <18 years of age. This is an estimated GFR calculation using the new CKD EPI creatinine equation without race and so does not require a correction factor for race. This estimated GFR should not be used for calculating drug doses. 02/05/2025 9:05 AM CDT us Mayank Valerio MD LABORATORY Final Result [address] [place] [address], * (ABNORMAL) LIPID PANEL (02/05/2025 9:05 AM CDT) Pathologist [facility] CHOLESTEROL 106 <200 MG/DL 02/05/2025 2:21 PM CDT [facility] TRIGLYCERIDES 131 <150 MG/DL 02/05/2025 2:21 PM CDT [facility] HDL 32(L) >40.0 MG/DL 02/05/2025 2:21 PM CDT [facility] LDL (CALCULATED) 48 <100 MG/DL 02/06/20 25 2:21 PM CDT [facility] Comment:CALCULATED USING THE FRIEDEWALD EQUATION NON HDL CHOLESTEROL 74 <130 MG/DL 02/05 2:21 PM CDT [facility] CHOL/HDL RATIO 3.3 0.0 - 4.5 02/05/2025 2:21 PM CDT [facility] VLDL CALCULATION 26 5 - 55 MG/DL 02/05/2025 2:21 PM CDT [facility] LIPID INTERPRETATION 02/05/2025 2:21 PM CDT [facility] Comment: NIH CONCENSUS REPORT RECOMMENDATIONS: ADULT CHILD LOW RISK: CHOLESTEROL <200 <170 TRIGLYCERIDE <150 --- HDL >=60 --- LDL <100 <110 BORDERLINE: CHOLESTEROL 200-239 170-199 TRIGLYCERIDE 150-199 --- HDL 40-59 --- LDL 100-159 110-129 HIGH RISK: CHOLESTEROL >=240 >=200 TRIGLYCERIDE >=200 --- HDL <40 --- LDL >=160 >=130 02/05/2025 9:05 AM CDT Mayank Valerio MD LABORATORY Final Result [facility] [address] [place] [address], * (ABNORMAL) CBC W/DIFF AUTOMATED (02/05/2025 9:05 AM CDT) [facility] WBC 5.94 4.50 - 11.00 x10'3/uL 02/05/2025 9:12 AM CDT [facility] RBC 4.50 4.50 - 5.90 x10'6/uL 02/05/2025 9:12 AM CDT [facility] HGB 14.2 14.0 - 18.0 G/DL 02/05/2025 9:12 AM CDT [facility] HCT 41.7(L) 43.0 - 54.0 % 02/05/2025 9:12 AM CDT [facility] MCV 92.7 80.0 - 100.0 FL 02/05/2025 9:12 AM CDT [facility] MCH 31.6 26.0 - 34.0 PG 02/05/2025 9:12 AM CDT [facility] MCHC 34.1 31.0 - 37.0 G/DL 02/05/2025 9:12 AM CDT [facility] RDW 13.1 11.6 - 14.8 % 02/05/2025 9:12 AM CDT [facility] PLT 151 130 - 400 x10'3/uL 02/05/2025 9:12 AM CDT [facility] MPV 9.1 7.0 - 12.0 FL 02/05/2025 9:12 AM CDT [facility] CBC COMMENT AUTOMATED RBC MORPHOLOGY AND PLATELET EVALUATION NORMAL 02/05/2025 9:12 AM CDT [facility] NEUTROPHILS % 64.9 40.0 - 74.0 % 02/05/2025 9:12 AM CDT [facility] LYMPHOCYTES % 22.2 14.0 - 46.0 % 02/05/2025 9:12 AM CDT [facility] MONOCYTES % 10.4 4.0 - 13.0 % 02/05/2025 9:12 AM CDT [facility] EOSINOPHILS 1.5 0.0 - 7.0 % 02/05/2025 9:12 AM CDT [facility] BASOPHILS 0.5 0.0 - 3.0 % 02/05/2025 9:12 AM CDT [facility] IMMATURE GRANS % 0.5(H) 0.0 - 0.43 % 02/05/2025 9:12 AM CDT [facility] NRBC % 0.0 % 02/05/2025 9:12 AM CDT [facility] ABS. NEUTROPHILS TOTAL 3.85 1.69 - 7.81 x10'3/uL 02/05/2025 9:12 AM CDT [facility] ABS. LYMPHOCYTES 1.32 0.21 - 5.42 x10'3/uL 02/05/2025 9:12 AM CDT [facility] ABS. MONOCYTES 0.62 0.04 - 1.37 x10'3/uL 02/05/2025 9:12 AM CDT [facility] ABS. EOSINOPHILS 0.09 0.00 - 0.68 x10'3/uL 02/05/2025 9:12 AM CDT [facility] ABS. BASOPHILS 0.03 0.00 - 0.08 x10'3/uL 02/05/2025 9:12 AM CDT [facility] ABS. IMMATURE GRANULOCYTES 0.03 0.00 - 0.06 x10'3/uL 02/05/2025 9:12 AM CDT [facility] ABS. NUCLEATED RBC'S 0.00 0.00 - 0.01 x10'3/uL 02/05/2025 9:12 AM CDT [facility] 02/05/2025 9:05 AM CDT Mayank Valerio MD LABORATORY Final Result Performing Organization Address City/State/[facility] Co de Phone Number [address] [place] [address], * CT ABD+PEL WO CON (08/24/2019 8:04 [...] Kailash Da Silva MD, 08/24/2019 8:30 PM us Roberto Leblanc MD CT Final Result * Colonoscopy ( CULINARY ARTIST) Narrative [facility] TO EPIC CONVERSION - CULINARY ARTIST Documented hx of procedure Procedure Note Alberto Davalos MD - 03/09/2018 Documented hx of procedure us Alberto Nye Md, MD GI PROCEDURE ORDERABLES Final Result [facility] TO EPIC CONVERSION from Last 3 Months or Most Recently Relevant to Health Maintenance Insurance MEDICARE [employer] Care Teams Riveter Relationship Specialty [place] [address] [place] [id number] PCP - General INTERNAL MEDICINE 03/06/18
--- OUTSIDE RECORDS SUMMARY | 2025-03-15 14:13 | XMS_ITS | Clinical Summary ---
Author Organization [facility] Address [address] [place] [address] Care Team Providers Care Boat Crew Deck Hand Name Role Phone Mayank Valerio MD Primary Care Provider [phone] Allergies Active Allergy Reactions Criticality Noted Date [...] Encounters Date Type Department Care Team Description 03/09/2025 Orders Only [facility] Oncology and Hematology - [address] [place] [id number] Lang Torres MD 02/16/2025 External Device Data STL ABSTRACTION Provider, [...] st Contact Info) Description 03/15/2025 2:30 PM RISK PREVENTION ENGINEER Office Visit [facility] Oncology and Hematology [facility] [address] [place] [phone] Lang Torres MD [address] [facility] [employer] [address] [place] [phone] Health Maintenance Due Date Last Done [...] Name Priority Date/Time Associated Diagnosis Comments CT ABDOMEN PELVIS W CONTRAST Routine 03/08/2025 11:24 AM RISK PREVENTION ENGINEER HEMOGLOBIN A1C Routine 01/19/2021 CT ABDOMEN PELVIS WO CONTRAST Routine 09/05/2020 Non-Hodgkin lymphoma of intra-abdominal lymph nodes, unspecified non-Hodgkin lymphoma type (CMS/HCC) from Last 3 Months or Most Recently Relevant to Health Maintenance Results * CT ABDOMEN PELVIS W CONTRAST (03/08/2025 11:24 AM RISK PREVENTION ENGINEER) Anatomical Region Laterality Modality Abdomen Computed Tomogra phy Lang Torres MD CT ORDERABLES Final Result * HEMOGLOBIN A1C (01/19/2021) Blood us Abstract Provider CHEMISTRY ORDERABLES Final Res ult * CT ABDOMEN PELVIS WO CONTRAST (09/05/2020) Anatomical Region Laterality Modality Abdomen Computed Tomogra phy Lang Torres MD CT ORDERABLES Final Result from Last 3 Months or Most Recently Relevant to Health Maintenance Insurance MEDICARE PART A AND B [employer] SUPP * Guarantor: JOSUÉ CROCKER Account Type Relation to Patient Date of Phone Billing Address Personal/Family 1962 not [address] address [address] Care Teams Boat Crew Deck Hand Relationship Specialty Start Date End Date Mayank Valerio MD PCP - General Internal Medicine 02/10/20
--- OUTSIDE RECORDS SUMMARY | 2025-03-15 14:13 | XMS_ITS | Encounter Summary ---
Author Organization [facility] Address [address] [place] [id number] Care Team Providers Care Chemistry Intern Name Role Phone Mayank Valerio MD Primary Care Provide r Encounter Details Date Type Department Care Team (Late st Contact Info) Description 08/23/[address] [facility] Clinics Conversion Md, Generic Conversion, Social History [...] 1:00 PM CDT Office Visit [facility] [id number] [place] [phone] [place] [address] [place] [address] documented as of this encounter Visit Diagnoses Not on filedocumented in this encounter Care Teams Chemistry Intern Relationship Specialty Start [place] [address] [place] [address] PCP - General INTERNAL MEDICINE 03/06/18 documented as of this encounter
[2025-03-15 14:16] LABS: Hematocrit 43.7 % (42.0-52.0); Hemoglobin 14.5 g/dL (14.0-18.0); Immature Granulocyte Percent A 0.5 % (0-0.5); Lymphocytes Absolute Auto 1.65 K/mm3 (0.9-3.2); Mean Corpuscular HGB Conc 33.2 g/dl (32-36); Mean Corpuscular Hemoglobin 31.5 pg (26-34); Mean Corpuscular Volume 94.8 fl (80-100); Nucleated Red Blood Cells Absolute Auto 0.000 K/mm3 (0.0-0.012); Nucleated Red Blood Cells Perc 0.0 % (0.0-0.2); Platelet Count Result 151 k/mm3 (150-375); Red Blood Count 4.61 M/mm3 (4.6-6.20); White Blood Count 7.4 K/mm3 (4.5-10.0)
[2025-03-15 14:20] LABS: Blood Urea Nitrogen 23 mg/dL (8-26); Carbon Dioxide 25 mmol/L (22-30); Chloride 104 mmol/L (98-109); Estimated Glomerular Filt Rate 43; Glucose 98 mg/dL (70-105); Ionized Calcium (POC) 1.24 mmol/L (1.11-1.31); Potassium 4.2 mmol/L (3.5-4.9); Sodium 140 mmol/L (138-146)
[2025-03-15 16:19] LABS: Alanine Aminotransferase 16 U/L (6-50); Albumin Level 4.4 g/dL (3.5-5.1); Alkaline Phosphatase 101 U/L (38-126); Anion Gap 8 mmol/L (4-12); Aspartate Amino Transferase 38 U/L (17-59); Bilirubin,Total 0.6 mg/dL (0.2-1.3); Blood Urea Nitrogen 23 mg/dL (9-20); Calcium 9.5 mg/dL (8.4-10.2); Carbon Dioxide 26 mmol/L (22-30); Chloride 103 mmol/L (98-107); Estimated Glomerular Filt Rate 48; Glucose 97 mg/dL (65-110); Potassium 4.3 mmol/L (3.4-5.0); Sodium 137 mmol/L (137-145); Total Protein 7.1 g/dL (6.3-8.2)
== END 2025-03-15 14:03 | disposition home or self-care (01) ==
LOC: ANHLAB 14:03
PROVIDERS: PCP Pediatrics; Visit Provider Internal Medicine Hematology & Oncology
DX: C85.93 Non-Hodgkin lymphoma, unspecified, intra-abdominal lymph nodes (principal)
CPT/HCPCS: 36415; 80047; 80053; 85025